=== PATIENT | male | born 1960 | race Caucasian/White ===

== ENCOUNTER → 2018-02-10 | Outpatient (CLI) | payer OTHER ==
--- NOTE | 2018-02-11 10:51 | ECHOF ---
Referral Reason:R01.1 Cardiac murmur MEASUREMENTS -------- HEIGHT: 175.3 cm WEIGHT: 164.7 kg BP: RVIDd: 3.9 cm (< 3.3) IVSd: 1.5 cm (0.6 - 1.1) LVIDd: 5.6 cm (3.9 - 5.3) LVPWd: 1.1 cm (0.6 - 1.1) IVSs: 1.6 cm LVIDs: 4.2 cm LVPWs: 1.0 cm LA Diam: 4.6 cm (2.7 - 3.8) LAESV Index (A-L): 36.10 ml/m EPSS: 0.4 cm Ao Diam: 3.4 cm (2.0 - 3.7) LA Diam: 2.2 cm (2.7 - 3.8) RVIDd: 3.8 cm (< 3.3) MV E Harshad: 0.73 m/s MV DecT: 331 ms MV A Harshad: 0.83 m/s MV E/A Ratio: 0.89 RAP: 5.00 mmHg RVSP: 19.64 mmHg MV EF SLOPE: 91.32 mm/s (70 - 150) MV EXCURSION: 1.94 cm (> 18.000) FINDINGS -------- Sinus rhythm. Morbid Obesity The left ventricular size is normal. There is mild concentric left ventricular hypertrophy. Overa ll left ventricular systolic function is low-normal with, an EF between 50 - 55 %. The right ventricle is moderate to severely enlarged. The left atrium is markedly dilated. LA is moderately dilated 34-39 ml/m2 The right atrial size is normal. The aortic valve is trileaflet, and appears structurally normal. No aortic stenosis or regurgitation. Mild mitral regurgitation is present. No regurgitation noted There is no evidence of pulmonary hypertension. There is no pulmonic regurgitation present. The aortic root size is normal. There is no pericardial effusion. CONCLUSIONS -------- 1. Morbid Obesity 2. The left ventricular size is normal. 3. There is mild concentric left ventricular hypertrophy. 4. Overall left ventricular systolic function is low-normal with, an EF between 50 - 55 %. 5. The right ventricle is moderate to severely enlarged. 6. The left atrium is markedly dilated. 7. LA is moderately dilated 34-39 ml/m2 8. The aortic valve is trileaflet, and appears structurally normal. No aortic stenosis or regurgitati on. 9. Mild mitral regurgitation is present. 10. No regurgitation noted 11. There is no evidence of pulmonary hypertension. 12. There is no pulmonic regurgitation present. 13. The aortic root size is normal. 14. There is no pericardial effusion. SYSTEM SOFTWARE DEVELOPER: JAZMIN English
== END | disposition home or self-care (01) ==
LOC: RADECHMAIN 14:43
PROVIDERS: ATTEND Nurse Practitioner Family
DX: I34.0 Nonrheumatic mitral (valve) insufficiency (principal); E66.01 Morbid (severe) obesity due to excess calories
CPT/HCPCS: 93306

== ENCOUNTER → 2022-12-08 | Outpatient (CLI) | payer OTHER ==
--- NOTE | 2022-12-08 16:39 | US ---
EXAMINATION TYPE: US renal artery duplex complet DATE OF EXAM: 12/08/2022 COMPARISON: NONE CLINICAL HISTORY: 62-year-old male I10 ESSENTIAL HYPERTENSION. Patient is morbidly obese, over 400lbs , new onset of HTN, patient was given order for renal artery doppler prior to starting BP meds FINDINGS: Computer Technician notes: Unable to do full study due to morbid obesity and overlying bowel gas The provided Doppler images are essentially nondiagnostic due to patient's size. Only small segments of either the mid or distal renal arteries could barely be visualized and measured velocities here ar e likely inaccurate. MEASUREMENTS: RENAL SIZE: Rt Kidney: 11.8 x 6.3 x 5.9 Lt Kidney: 11.2 x 5.9 x 8.3 There is no obvious hydronephrosis. Suspect a 3.1 cm upper to mid pole left renal cortical cyst. RESISTANCE INDEX Right: Unable to reliably assess Left: Unable to reliably assess RA/AO RATIO (< 3.5 ) Right: 1.6 *estimate based off of very limited imaging Left: 0.8 *estimate based off of very limited imaging RA VELOCITY ( < 180 cm/s) Right: 107 Left: 53.4 Note that these measurements may be inaccurate and are based on very limited sampling of portions of the mid or distal renal arteries. IMPRESSION: Very large patient size makes the exam essentially nondiagnostic. Unable to satisfactorily exclude th e possibility of underlying renal artery stenosis. If persistent concern, consider renal artery CTA ( but note that large patient size may limit CT as well).
== END | disposition home or self-care (01) ==
LOC: RADUSWWP 14:30
PROVIDERS: ATTEND Family Medicine
DX: I10 Essential (primary) hypertension (principal)
CPT/HCPCS: 93975

== ENCOUNTER → 2023-02-23 | Outpatient (CLI) | payer OTHER ==
--- NOTE | 2023-02-23 13:49 | XR ---
EXAMINATION TYPE: XR chest 2V DATE OF EXAM: 02/23/2023 1:42 PM COMPARISON: None TECHNIQUE: XR chest 2V Frontal and lateral views of the chest. CLINICAL INDICATION:Male, 62 years old with history of I10 HTN; FINDINGS: Lungs/Pleura: There is no evidence of pleural effusion, focal consolidation, or pneumothorax. Pulmonary vascularity: Unremarkable. Heart/mediastinum: Cardiomediastinal silhouette is unremarkable. Musculoskeletal: Multiple level degenerative disc disease changes seen throughout the spine. No acute osseous abnormality. IMPRESSION: No acute cardiopulmonary disease/process.
== END | disposition home or self-care (01) ==
LOC: RADXRMAIN 13:30
PROVIDERS: ATTEND Internal Medicine Hematology & Oncology
DX: J45.998 Other asthma (principal); E78.5 Hyperlipidemia, unspecified; I10 Essential (primary) hypertension
CPT/HCPCS: 71046

== ENCOUNTER → 2023-03-10 | Outpatient (CLI) | payer OTHER | END | disposition home or self-care (01) | LOC: RADUSWWP 12:28 | PROVIDERS: ATTEND Family Medicine | DX: Z53.9 Procedure and treatment not carried out, unspecified reason (principal) ==

== ENCOUNTER → 2023-03-17 | Outpatient (CLI) | payer OTHER ==
--- NOTE | 2023-03-17 13:48 | US ---
EXAMINATION TYPE: US venous doppler duplex LE DATE OF EXAM: 03/17/2023 12:53 PM COMPARISON: NONE CLINICAL INDICATION: Male, 62 years old with history of E78.2 HYPERLIPIDEMIA,M79.89 SOFT TISSUE DISOR DERS; left leg edema SIDE PERFORMED: bilateral TECHNIQUE: The lower extremity deep venous system is examined utilizing real time linear array sonog abbie with graded compression, doppler sonography and color-flow sonography. VESSELS IMAGED: Common Femoral Vein Deep Femoral Vein Greater Saphenous Vein * Femoral Vein Popliteal Vein Small Saphenous Vein * Proximal Calf Veins (* superficial vessels) *Limitations due to patient's body habitus, limited evaluation of groin vessels Right Leg: no evidence of DVT as visualized Left Leg: no evidence of DVT as visualized IMPRESSION: Grayscale, color doppler, spectral doppler imaging performed of the deep veins of the lo wer extremities. There is normal flow, compressibility, vascular waveforms.
== END | disposition home or self-care (01) ==
LOC: RADUSWWP 12:13
PROVIDERS: ATTEND Family Medicine
DX: E78.2 Mixed hyperlipidemia (principal); R25.2 Cramp and spasm; M79.89 Other specified soft tissue disorders
CPT/HCPCS: 93922; 93970

== ENCOUNTER 2025-01-21 12:48 | Inpatient (IN) | payer OTHER ==
--- NOTE | 2025-01-21 14:11 | ED ---
Abdominal Pain HPI - General Chief Complaint: Abdominal Pain Stated Complaint: abd pain Time Seen by Provider: 01/21/25 13:41 Source: patient, RN notes reviewed Mode of arrival: wheelchair Limitations: no limitations - History of Present Illness Initial Comments: This is a 64-year-old male who presents to the emergency department for abdominal pain and shortness of breath. States that he has been dealing with shortness of breath for the last 2 weeks. He has also started to notice swelling in his lower extremities and abdomen. Today he felt a pain in his left upper quadrant that occurred about 2 hours prior to arrival. This has since persisted, prompting him to come here for evaluation. Denies any nausea or vomiting. Denies any changes in bowel or bladder habits. Denies any history of respiratory or cardiac problems. MD Complaint: abdominal pain - Related Data Home Medications Medication Instructions Recorded Confirmed No Known Home Medications 01/21/25 01/21/25 Allergies Allergy/AdvReac Type Severity Reaction Status Date / Time tree nut Allergy Anaphylaxis Verified 01/21/25 16:21 Review of Systems ROS Statement: Those systems with pertinent positive or pertinent negative responses have been documented in the HPI. ROS Other: All systems not noted in ROS Statement are negative. Past Medical History Past Medical History: Hypertension History of Any Multi-Drug Resistant Organisms: None Reported Past Surgical History: No Surgical Hx Reported Past Psychological History: No Psychological Hx Reported Smoking Status: Former smoker Past Alcohol Use History: Rare Past Drug Use History: None Reported General Exam Limitations: no limitations General appearance: alert, in no apparent distress Head exam: Present: atraumatic, normocephalic, normal inspection Respiratory exam: Present: decreased breath sounds, prolonged expiratory Cardiovascular Exam: Present: normal rhythm, tachycardia GI/Abdominal exam: Present: soft, distended, tenderness (diffuse), normal bowel sounds Extremities exam: Present: other (Bilateral lower extremity swelling) Neurological exam: Present: alert, oriented X3, CN II-XII intact Psychiatric exam: Present: normal affect, normal mood Skin exam: Present: warm, dry, intact, normal color. Absent: rash Course Vital Signs 01/21/25 01/21/25 01/21/25 12:53 15:49 17:02 Temperature 98.3 F Pulse Rate 102 H 83 Respiratory 28 H 18 Rate Blood Pressure 194/114 212/122 169/93 O2 Sat by Pulse 87 L 98 Oximetry Medical Decision Making - Medical Decision Making This is a 64-year-old male who presents to the emergency department for abdominal pain and shortness of breath. Was pt. sent in by a medical professional or institution? @ -No Did you speak to anyone other than the patient for history? @ -No Did you review nursing and triage notes? @ -Yes, and I agree, it is accurate with regards to the patient's symptoms. Were old charts reviewed? @ -No Differential Diagnosis? @ -Differential Abdominal Pain Men: Appendicitis, cholecystitis, diverticulosis, ischemic bowel, pancreatitis, hepatitis, UTI, gastroenteritis, AAA, incarcerated hernia, bowel obstruction, constipation, inflammatory bowel, hepatitis, peptic ulcer disease, splenic infarction, perforated viscus, testicular torsion, this is not meant to be an all-inclusive list EKG interpreted by me (3pts min.)? @ -EKG interpreted by me demonstrating the following: Sinus tachycardia. Ventricular rate 100 bpm, MO interval 155 ms, QRS duration 116 ms, QTc 419 ms. X-rays interpreted by me (1pt min.)? @ -Chest x-ray obtained. My interpretation identifies pulmonary vascular congestion. CT interpreted by me (1pt min.)? @ -Ordered, not obtained at the point of admission. U/S interpreted by me (1pt. min.)? @ -Not obtained What testing was considered but not performed? (CT, X-rays, U/S, labs)? Why? @ -None What meds were considered but not given? Why? @ -None Did you discuss the management of the patient with other professionals? @ -Yes, Dr. Gregg, who accepts the patient for admission. Did you reconcile home meds? @ -Yes Was smoking cessation discussed for >3mins.? @ -No Was critical care preformed (if so, how long)? @ -No Were there social determinants of health that impacted care today? How? (Homelessness, low income, unemployed, alcoholism, drug addiction, transportation, low edu. Level, literacy, decrease access to med. care, fpc, rehab)? @ -No Was there de-escalation of care discussed even if they declined? (Discuss DNR or withdrawal of care, Hospice)? @ -No What co-morbidities impacted this encounter? (DM, HTN, Smoking, COPD, CAD, Cancer, CVA, Hep., AIDS, mental health diagnosis, sleep apnea, morbid obesity)? @ -Morbid obesity Was patient admitted / discharged? @ -Admitted. Patient hypoxic on arrival with an oxygen of 87%. This improved with 2 L via nasal cannula. Lab work demonstrates leukocytosis with a white blood cell count of 17.5. D-dimer negative. Lactic acid elevated at 2.3. BNP elevated at 2780 and troponin elevated at 0.057. Patient denies a history of C HF. Chest x-ray demonstrates cardiomegaly with pulmonary vascular congestion. On exam patient also appears to be retaining fluid in his lower extremities and abdomen. COVID, influenza, and RSV testing negative. Urinalysis negative for signs of infection. Given his abdominal pain we attempted to get a CT scan on the patient. However, he could not comfortably lay flat for the testing. He was not in any significant distress and will plan on obtaining the CT scan after admission when he is able to lay flat more comfortably. 40 mg of IV Lasix administered. Nitropaste applied as well to help with both his blood pressure and respirations. Vasotec also ordered due to his blood pressure being persistently elevated in the 200s systolically. Blood pressure did start to improve with both of these interventions. Patient admitted to medicine for new onset CHF with elevated troponin and hypoxia. Serial troponins ordered and consult was placed for cardiology. Echocardiogram ordered as well. Case discussed with ED attending Dr. Tamez. Undiagnosed new problem with uncertain prognosis? @ -None Drug Therapy requiring intensive monitoring for toxicity (Heparin, Nitro, Insulin, Cardizem)? @ -None Were any procedures done? @ -None Diagnosis/symptom? @ -New onset CHF, elevated troponin, hypoxia Acute, or Chronic, or Acute on Chronic? @ -Acute Uncomplicated (without systemic symptoms) or Complicated (systemic symptoms)? @ -Complicated Side effects of treatment? @ -None Exacerbation, Progression, or Severe Exacerbation] @ -Not applicable Poses a threat to life or bodily function? @ -Yes, can lead to further respiratory compromise and - Lab Data Result diagrams: 01/21/25 14:18 01/21/25 14:18 Lab Results 01/21/25 01/21/25 01/21/25 Range/Units 14:10 14:18 14:18 WBC 17.5 H (3.8-10.6) k/uL RBC 5.10 (4.30-5.90) m/uL Hgb 15.5 (13.0-17.5) gm/dL Hct 50.3 (39.0-53.0) % MCV 98.7 (80.0-100.0) fL MCH 30.3 (25.0-35.0) pg MCHC 30.7 L (31.0-37.0) g/dL RDW 16.2 H (11.5-15.5) % Plt Count 220 (150-450) k/uL MPV 8.0 Neutrophils % 85 % Lymphocytes % 9 % Monocytes % 4 % Eosinophils % 2 % Basophils % 0 % Neutrophils # 14.8 H (1.3-7.7) k/uL Lymphocytes # 1.5 (1.0-4.8) k/uL Monocytes # 0.7 (0-1.0) k/uL Eosinophils # 0.3 (0-0.7) k/uL Basophils # 0.1 (0-0.2) k/uL Hypochromasia Marked Anisocytosis Slight Macrocytosis Slight PT 13.6 H (10.0-12.5) sec INR 1.3 H (<1.2) APTT 28.7 (22.0-30.0) sec D-Dimer 0.59 (<0.60) mg/L FEU Sodium (137-145) mmol/L Potassium (3.5-5.1) mmol/L Chloride (98-107) mmol/L Carbon Dioxide (22-30) mmol/L Anion Gap mmol/L BUN (9-20) mg/dL Creatinine (0.66-1.25) mg/dL Est GFR (CKD-EPI)AfAm (>60 ml/min/1.73 sqM) Est GFR (CKD-EPI)NonAf (>60 ml/min/1.73 sqM) Glucose (74-99) mg/dL Lactic Ac Sepsis Rflx Plasma Lactic Acid Trevin (0.7-2.0) mmol/L Calcium (8.4-10.2) mg/dL Magnesium (1.6-2.3) mg/dL Total Bilirubin (0.2-1.3) mg/dL AST (17-59) U/L ALT (4-49) U/L Alkaline Phosphatase (38-126) U/L Troponin I (0.000-0.034) ng/mL NT-Pro-B Natriuret Pep pg/mL Total Protein (6.3-8.2) g/dL Albumin (3.5-5.0) g/dL Amylase (30-110) U/L Lipase (23-300) U/L Urine Color Urine Appearance (Clear) Urine pH (5.0-8.0) Ur Specific [place] (1.001-1.035) Urine Protein (Negative) Urine Glucose (UA) (Negative) Urine Ketones (Negative) Urine Blood (Negative) Urine Nitrite (Negative) Urine Bilirubin (Negative) Urine Urobilinogen (<2.0) mg/dL Ur Leukocyte Esterase (Negative) Urine RBC (0-5) /hpf Urine WBC (0-5) /hpf Ur Squamous Epith Cells (0-4) /hpf Hyaline Casts (0-2) /lpf Urine Mucus (None) /hpf Influenza Type A (PCR) Not Detected (Not Detectd) Influenza Type B (PCR) Not Detected (Not Detectd) RSV (PCR) Not Detected (Not Detectd) SARS-CoV-2 (PCR) Not Detected (Not Detectd) 01/21/25 01/21/25 01/21/25 Range/Units 14:18 14:18 14:18 WBC (3.8-10.6) k/uL RBC (4.30-5.90) m/uL Hgb (13.0-17.5) gm/dL Hct (39.0-53.0) % MCV (80.0-100.0) fL MCH (25.0-35.0) pg MCHC (31.0-37.0) g/dL RDW (11.5-15.5) % Plt Count (150-450) k/uL MPV Neutrophils % % Lymphocytes % % Monocytes % % Eosinophils % % Basophils % % Neutrophils # (1.3-7.7) k/uL Lymphocytes # (1.0-4.8) k/uL Monocytes # (0-1.0) k/uL Eosinophils # (0-0.7) k/uL Basophils # (0-0.2) k/uL Hypochromasia Anisocytosis Macrocytosis PT (10.0-12.5) sec INR (<1.2) APTT (22.0-30.0) sec D-Dimer (<0.60) mg/L FEU Sodium 140 (137-145) mmol/L Potassium 4.6 (3.5-5.1) mmol/L Chloride 95 L (98-107) mmol/L Carbon Dioxide 36 H (22-30) mmol/L Anion Gap 9 mmol/L BUN 14 (9-20) mg/dL Creatinine 0.85 (0.66-1.25) mg/dL Est GFR (CKD-EPI)AfAm >90 (>60 ml/min/1.73 sqM) Est GFR (CKD-EPI)NonAf >90 (>60 ml/min/1.73 sqM) Glucose 136 H (74-99) mg/dL Lactic Ac Sepsis Rflx Plasma Lactic Acid Trevin 2.3 H* (0.7-2.0) mmol/L Calcium 9.5 (8.4-10.2) mg/dL Magnesium 1.7 (1.6-2.3) mg/dL Total Bilirubin 1.3 (0.2-1.3) mg/dL AST 27 (17-59) U/L ALT 23 (4-49) U/L Alkaline Phosphatase 83 (38-126) U/L Troponin I (0.000-0.034) ng/mL NT-Pro-B Natriuret Pep 2780 pg/mL Total Protein 6.8 (6.3-8.2) g/dL Albumin 3.9 (3.5-5.0) g/dL Amylase 47 (30-110) U/L Lipase 116 (23-300) U/L Urine Color Yellow Urine Appearance Cloudy (Clear) Urine pH 6.0 (5.0-8.0) Ur Specific [place] 1.019 (1.001-1.035) Urine Protein 2+ H (Negative) Urine Glucose (UA) Negative (Negative) Urine Ketones Trace H (Negative) Urine Blood Negative (Negative) Urine Nitrite Negative (Negative) Urine Bilirubin Negative (Negative) Urine Urobilinogen 3.0 (<2.0) mg/dL Ur Leukocyte Esterase Small H (Negative) Urine RBC 3 (0-5) /hpf Urine WBC 11 H (0-5) /hpf Ur Squamous Epith Cells 1 (0-4) /hpf Hyaline Casts 1 (0-2) /lpf Urine Mucus Few H (None) /hpf Influenza Type A (PCR) (Not Detectd) Influenza Type B (PCR) (Not Detectd) RSV (PCR) (Not Detectd) SARS-CoV-2 (PCR) (Not Detectd) 01/21/25 01/21/25 Range/Units 14:18 15:04 WBC (3.8-10.6) k/uL RBC (4.30-5.90) m/uL Hgb (13.0-17.5) gm/dL Hct (39.0-53.0) % MCV (80.0-100.0) fL MCH (25.0-35.0) pg MCHC (31.0-37.0) g/dL RDW (11.5-15.5) % Plt Count (150-450) k/uL MPV Neutrophils % % Lymphocytes % % Monocytes % % Eosinophils % % Basophils % % Neutrophils # (1.3-7.7) k/uL Lymphocytes # (1.0-4.8) k/uL Monocytes # (0-1.0) k/uL Eosinophils # (0-0.7) k/uL Basophils # (0-0.2) k/uL Hypochromasia Anisocytosis Macrocytosis PT (10.0-12.5) sec INR (<1.2) APTT (22.0-30.0) sec D-Dimer (<0.60) mg/L FEU Sodium (137-145) mmol/L Potassium (3.5-5.1) mmol/L Chloride (98-107) mmol/L Carbon Dioxide (22-30) mmol/L Anion Gap mmol/L BUN (9-20) mg/dL Creatinine (0.66-1.25) mg/dL Est GFR (CKD-EPI)AfAm (>60 ml/min/1.73 sqM) Est GFR (CKD-EPI)NonAf (>60 ml/min/1.73 sqM) Glucose (74-99) mg/dL Lactic Ac Sepsis Rflx Y Plasma Lactic Acid Trevin (0.7-2.0) mmol/L Calcium (8.4-10.2) mg/dL Magnesium (1.6-2.3) mg/dL Total Bilirubin (0.2-1.3) mg/dL AST (17-59) U/L ALT (4-49) U/L Alkaline Phosphatase (38-126) U/L Troponin I 0.057 H* (0.000-0.034) ng/mL NT-Pro-B Natriuret Pep pg/mL Total Protein (6.3-8.2) g/dL Albumin (3.5-5.0) g/dL Amylase (30-110) U/L Lipase (23-300) U/L Urine Color Urine Appearance (Clear) Urine pH (5.0-8.0) Ur Specific [place] (1.001-1.035) Urine Protein (Negative) Urine Glucose (UA) (Negative) Urine Ketones (Negative) Urine Blood (Negative) Urine Nitrite (Negative) Urine Bilirubin (Negative) Urine Urobilinogen (<2.0) mg/dL Ur Leukocyte Esterase (Negative) Urine RBC (0-5) /hpf Urine WBC (0-5) /hpf Ur Squamous Epith Cells (0-4) /hpf Hyaline Casts (0-2) /lpf Urine Mucus (None) /hpf Influenza Type A (PCR) (Not Detectd) Influenza Type B (PCR) (Not Detectd) RSV (PCR) (Not Detectd) SARS-CoV-2 (PCR) (Not Detectd) - Radiology Data Radiology results: report reviewed, image reviewed Disposition Clinical Impression: New onset of congestive heart failure, Elevated troponin, Hypoxia Disposition: ADMITTED IP TO THIS HOSP
[2025-01-21 14:30] LABS: Anisocytosis Slight; Basophils # (A) 0.1 k/uL (0-0.2); Basophils % (A) 0 %; Eosinophils # (A) 0.3 k/uL (0-0.7); Eosinophils % (A) 2 %; HCT 50.3 % (39.0-53.0); HGB 15.5 gm/dL (13.0-17.5); Hypochromasia Marked; Lymphocytes # (A) 1.5 k/uL (1.0-4.8); Lymphocytes % (A) 9 %; MCH 30.3 pg (25.0-35.0); MCHC 30.7 g/dL (31.0-37.0); MCV 98.7 fL (80.0-100.0); Macrocytosis Slight; Monocytes # (A) 0.7 k/uL (0-1.0); Monocytes % (A) 4 %; Neutrophils # (A) 14.8 k/uL (1.3-7.7); Neutrophils % (A) 85 %; Platelet Count 220 k/uL (150-450); RDW 16.2 % (11.5-15.5); WBC 17.5 k/uL (3.8-10.6)
[2025-01-21 14:34] LABS: Appearance,Urine Cloudy (Clear); Bilirubin,Urine Negative (Negative); Blood,Urine Negative (Negative); Color,Urine Yellow; Glucose,Urine (UA) Negative (Negative); Hyaline Casts,Urine 1 /lpf (0-2); Ketones,Urine Trace (Negative); Leukocyte Esterase,Urine Small (Negative); Mucus,Urine Few /hpf; Nitrite,Urine Negative (Negative); Protein,Urine 2+ (Negative); RBC,Urine 3 /hpf (0-5); Specific Gravity,Urine 1.019 (1.001-1.035); Squamous Epithelial Cell,Urine 1 /hpf (0-4); WBC,Urine 11 /hpf (0-5)
[2025-01-21 14:39] LABS: ALT 23 U/L (4-49); AST 27 U/L (17-59); African American GFR (CKD) >90 (>60 ml/min/1.73 sqM); Albumin 3.9 g/dL (3.5-5.0); Alkaline Phosphatase 83 U/L (38-126); Amylase 47 U/L (30-110); Blood Urea Nitrogen 14 mg/dL (9-20); Calcium 9.5 mg/dL (8.4-10.2); Chloride 95 mmol/L (98-107); Glucose 136 mg/dL (74-99); Lipase 116 U/L (23-300); Magnesium 1.7 mg/dL (1.6-2.3); Non-African American GFR(CKD) >90 (>60 ml/min/1.73 sqM); Potassium 4.6 mmol/L (3.5-5.1); Sodium 140 mmol/L (137-145); Total Bilirubin 1.3 mg/dL (0.2-1.3); Total Protein 6.8 g/dL (6.3-8.2)
[2025-01-21 14:45] LABS: Anion Gap 9 mmol/L
[2025-01-21 14:47] LABS: INR 1.3 (<1.2); NT-Pro-B-Type Natriuretic Pept 2780 pg/mL; Partial Thromboplastin Time 28.7 sec (22.0-30.0); Prothrombin Time 13.6 sec (10.0-12.5)
[2025-01-21 15:05] LABS: Carbon Dioxide 36 mmol/L (22-30)
[2025-01-21 15:12] LABS: Influenza A Not Detected (Not Detectd); Influenza B Not Detected (Not Detectd); RSV Not Detected (Not Detectd)
--- NOTE | 2025-01-21 15:23 | XR ---
EXAMINATION TYPE: XR chest 2V DATE OF EXAM: 01/21/2025 3:13 PM COMPARISON: Previous chest radiograph 02/23/2023. CLINICAL INDICATION: Male, 64 years old with history of JONN; [facility] TECHNIQUE: XR chest 2V Frontal and lateral views of the chest. FINDINGS: Lungs/Pleura: No acute focal consolidation or evidence of pneumothorax. Mild pulmonary vascular conge stive changes and possible trace effusions. Pulmonary vascularity: Unremarkable. Heart/mediastinum: Cardiomegaly. Musculoskeletal: No acute osseous pathology. Other findings: None IMPRESSION: Cardiomegaly and mild pulmonary vascular congestive changes suggestive of CHF. [facility], , 01/21/2025 3:21 PM
[2025-01-21] MEDS ORDERED: ONDANSETRON 4 MG/2 ML VIAL IVP PRN (15:35)
[2025-01-21] MEDS ORDERED: ACETAMINOPHEN TAB 325 MG TAB PO PRN (15:35)
[2025-01-21] MEDS ORDERED: MORPHINE SULFATE 4 MG/ML SYRINGE IV PRN (15:35)
[2025-01-21] MEDS ORDERED: HYDROcodone/APAP 5-325MG 1 EACH TAB PO PRN (15:35)
[2025-01-21] MEDS ORDERED: NALOXONE 0.4 MG/ML 1 ML VIAL IV PRN (15:35)
[2025-01-21] MEDS: FUROSEMIDE 10 MG/ML 4 ML VIAL IV STA (15:42)
[2025-01-21] MEDS: ASPIRIN 81 MG PO STA (15:44)
[2025-01-21] MEDS: NITROGLYCERIN OINT 1 INCH/GM PACKET TOPICAL STA (15:45)
[2025-01-21] MEDS: ENALAPRILAT 1.25 MG/ML 1 ML VIAL IVP SCH (16:39)
[2025-01-21] MEDS: NITROGLYCERIN SL TABS 0.4 MG TAB SUBLINGUAL STA (17:01)
--- NOTE | 2025-01-21 19:04 | P.HPIM ---
History of Present Illness H&P Date: 01/21/25 Chief Complaint: Abnormal pain/shortness of breath 64-year-old male who presents to the emergency department for abdominal pain and shortness of breath. States that he has been dealing with shortness of breath for the last 2 weeks. He has also started to notice swelling in his lower extremities and abdomen. Today he felt a pain in his left upper quadrant that occurred about 2 hours prior to arrival. This has since persisted, prompting him to come here for evaluation. Denies any nausea or vomiting. Denies any changes in bowel or bladder habits. Denies any history of respiratory or cardiac problems. Patient hypoxic on arrival with an oxygen of 87%. This improved with 2 L via nasal cannula. Lab work demonstrates leukocytosis with a white blood cell count of 17.5. D- dimer negative. Lactic acid elevated at 2.3. BNP elevated at 2780 and troponin elevated at 0.057. Patient denies a history of CHF. Chest x-ray demonstrates cardiomegaly with pulmonary vascular congestion. COVID, influenza, and RSV testing negative. Urinalysis negative for signs of infection. Given his abdominal pain ER attempted to get a CT scan on the patient. However, he could not comfortably lay flat for the testing. Review of Systems REVIEW OF SYSTEMS: CONSTITUTIONAL: No fever, no malaise, no fatigue. HEENT: No recent visual problems or hearing problems. Denied any sore throat. CARDIOVASCULAR: No chest pain, orthopnea, PND, no palpitations, no syncope. PULMONARY: No shortness of breath, no cough, no hemoptysis. GASTROINTESTINAL: No diarrhea, no nausea, no vomiting, no abdominal pain. NEUROLOGICAL: No headaches, no weakness, no numbness. HEMATOLOGICAL: Denies any bleeding or petechiae. GENITOURINARY: Denies any burning micturition, frequency, or urgency. MUSCULOSKELETAL/RHEUMATOLOGICAL: Denies any joint pain, swelling, or any muscle pain. ENDOCRINE: Denies any polyuria or polydipsia. The rest of the 14-point review of systems is negative. Past Medical History Past Medical History: Hypertension History of Any Multi-Drug Resistant Organisms: None Reported Past Surgical History: No Surgical Hx Reported Past Psychological History: No Psychological Hx Reported Smoking Status: Former smoker Past Alcohol Use History: Rare Past Drug Use History: None Reported Medications and Allergies Home Medications Medication Instructions Recorded Confirmed Type No Known Home Medications 01/21/25 01/21/25 History Allergies Allergy/AdvReac Type Severity Reaction Status Date / Time tree nut Allergy Anaphylaxis Verified 01/21/25 16:21 Physical Exam Vitals: Vital Signs Temp Pulse Resp BP Pulse Ox 01/21/25 15:49 83 18 212/122 98 01/21/25 12:53 98.3 F 102 H 28 H 194/114 87 L Intake and Output 01/21/25 01/21/25 01/21/25 06:59 14:59 22:59 Other: Weight 158.757 kg General appearance: alert, in no apparent distress Head exam: Present: atraumatic, normocephalic, normal inspection Respiratory exam: Present: decreased breath sounds, prolonged expiratory Cardiovascular Exam: Present: normal rhythm, tachycardia GI/Abdominal exam: Present: soft, distended, tenderness (diffuse), normal bowel sounds Extremities exam: Present: other (Bilateral lower extremity swelling) Neurological exam: Present: alert, oriented X3, CN II-XII intact Psychiatric exam: Present: normal affect, normal mood Skin exam: Present: warm, dry, intact, normal color. Absent: rash Results CBC & Chem 7: 01/21/25 14:18 01/21/25 14:18 Labs: Abnormal Lab Results - Last 24 Hours (Table) 01/21/25 01/21/25 01/21/25 Range/Units 14:18 14:18 14:18 WBC 17.5 H (3.8-10.6) k/uL MCHC 30.7 L (31.0-37.0) g/dL RDW 16.2 H (11.5-15.5) % Neutrophils # 14.8 H (1.3-7.7) k/uL PT 13.6 H (10.0-12.5) sec INR 1.3 H (<1.2) Chloride (98-107) mmol/L Carbon Dioxide (22-30) mmol/L Glucose (74-99) mg/dL Plasma Lactic Acid Trevin (0.7-2.0) mmol/L Troponin I (0.000-0.034) ng/mL Urine Protein 2+ H (Negative) Urine Ketones Trace H (Negative) Ur Leukocyte Esterase Small H (Negative) Urine WBC 11 H (0-5) /hpf Urine Mucus Few H (None) /hpf 01/21/25 01/21/25 01/21/25 Range/Units 14:18 14:18 14:18 WBC (3.8-10.6) k/uL MCHC (31.0-37.0) g/dL RDW (11.5-15.5) % Neutrophils # (1.3-7.7) k/uL PT (10.0-12.5) sec INR (<1.2) Chloride 95 L (98-107) mmol/L Carbon Dioxide 36 H (22-30) mmol/L Glucose 136 H (74-99) mg/dL Plasma Lactic Acid Trevin 2.3 H* (0.7-2.0) mmol/L Troponin I 0.057 H* (0.000-0.034) ng/mL Urine Protein (Negative) Urine Ketones (Negative) Ur Leukocyte Esterase (Negative) Urine WBC (0-5) /hpf Urine Mucus (None) /hpf Assessment and Plan Assessment: 1. New onset CHF; acute exacerbation -Chest x-ray reveals cardiomegaly with pulmonary vascular congestion; BNP elevated at 2780 -Patient is clinically fluid overloaded -Will admit to telemetry; monitor EKG and trend troponin -Patient will be placed on IV Lasix; monitor strict CONNOR's, daily weights, renal function electrolytes -2D echo; consult cardiology 2. Leukocytosis/possible UTI; lactic acid is elevated at 2.3; no signs of infection; chest x-ray is negative for any acute process -UA reveals small amount of leukocyte esterase -Will start patient empirically on IV Rocephin and repeat CBC; procalcitonin and CRP 3. Elevated troponin; likely related to hypoxia - initial troponin is at 0.057; we will trend with plans to initiate IV heparin infusion if troponin continues to trend up 4. Hypertension; lisinopril 20 mg daily 5. Morbid obesity; counseling done on need for weight reduction DVT prophylaxis; SCDs/subcu heparin CODE STATUS; full code
[2025-01-21] MEDS: HEPARIN SODIUM,PORCINE 5,000 UNIT/ML 1 ML VIAL SQ SCH (21:02)
[2025-01-21] MEDS: FUROSEMIDE 10 MG/ML 2 ML VIAL IV SCH (23:11)
[2025-01-22 07:45] LABS: Anisocytosis Slight; Basophils # (A) 0.1 k/uL (0-0.2); Basophils % (A) 1 %; Eosinophils # (A) 0.1 k/uL (0-0.7); Eosinophils % (A) 1 %; HCT 46.9 % (39.0-53.0); Hypochromasia Marked; Lymphocytes # (A) 1.1 k/uL (1.0-4.8); Lymphocytes % (A) 7 %; MCHC 29.9 g/dL (31.0-37.0); MCV 100.1 fL (80.0-100.0); Macrocytosis Slight; Mean Platelet Volume 7.6; Monocytes # (A) 0.7 k/uL (0-1.0); Monocytes % (A) 5 %; Neutrophils # (A) 12.8 k/uL (1.3-7.7); Neutrophils % (A) 86 %; Platelet Count 212 k/uL (150-450); RBC 4.68 m/uL (4.30-5.90); WBC 14.9 k/uL (3.8-10.6)
[2025-01-22 08:02] LABS: African American GFR (CKD) >90 (>60 ml/min/1.73 sqM); Blood Urea Nitrogen 14 mg/dL (9-20); C Reactive Protein 2.9 mg/dL (<1.0); Calcium 8.9 mg/dL (8.4-10.2); Chloride 92 mmol/L (98-107); Glucose 117 mg/dL (74-99); Non-African American GFR(CKD) >90 (>60 ml/min/1.73 sqM); Potassium 4.4 mmol/L (3.5-5.1); Sodium 140 mmol/L (137-145)
[2025-01-22] MEDS: PANTOPRAZOLE 40 MG/10 ML VIAL IV SCH (08:03)
[2025-01-22 08:07] LABS: Anion Gap 7 mmol/L
[2025-01-22 08:13] LABS: Carbon Dioxide 41 mmol/L (22-30)
[2025-01-22 12:05] LABS: INR 1.2 (<1.2); Prothrombin Time 12.9 sec (10.0-12.5)
[2025-01-22 12:06] LABS: Partial Thromboplastin Time 28.2 sec (22.0-30.0)
[2025-01-22] MEDS: HEPARIN SOD,PORK IN 0.45% NACL 25,000 UNIT in 0.45% NACL 1 250ML.BAG IV SCH (12:31)
[2025-01-22] MEDS: HEPARIN SODIUM 1,000 UN/ML (10ML VL) IV ONE (12:32)
[2025-01-22] MEDS: acetaZOLAMIDE 250 MG TAB PO ONE (12:32)
--- NOTE | 2025-01-22 13:06 | P.CRDCN ---
History of Present Illness Consult date: 01/22/25 Reason for Consult (text): New Onset CHF Consult reason: congestive heart failure History of present illness: 64-year-old male with past medical history of hypertension presents with complaints of abdominal pain and shortness of breath. Cardiology consulted for new onset CHF. States that shortness of breath was getting worse over the last 2 weeks and during this time also noticed swelling in the bilateral lower e xtremities. Admits to orthopnea during this time, states he is only able to sleep in a recliner. Reports he previously was on lisinopril and hydrochlorothiazide up until August of last year when he had an insurance problem and was no longer able to receive the medication. Admits to being a smoker 1 pack a day 20 years ago. Most recent echo in 2018 showed EF 50 to 55% with left atrial dilation. Past surgical and family history unremarkable. No previous cardiac procedures. Vitals: Heart rate 94, respiratory rate 18, BP 183/83, O2 saturation 96% on 3 L Labs: Significant for WBC 14.9, hemoglobin 14, MCV 100, troponin peaked at 0.068, BNP 2780, cholesterol 180, LDL 117, and HDL 44 EKG: Sinus tachycardia CXR: Cardiomegaly plus pulmonary vascular congestion Past Medical History Past Medical History: Hypertension History of Any Multi-Drug Resistant Organisms: None Reported Past Surgical History: No Surgical Hx Reported Past Psychological History: No Psychological Hx Reported Smoking Status: Former smoker Past Alcohol Use History: Rare Past Drug Use History: None Reported Medications and Allergies Home Medications Medication Instructions Recorded Confirmed Type No Known Home Medications 01/21/25 01/21/25 History Allergies Allergy/AdvReac Type Severity Reaction Status Date / Time tree nut Allergy Anaphylaxis Verified 01/21/25 16:21 Physical Exam Vitals: Vital Signs Temp Pulse Pulse Resp BP BP Pulse Ox 01/22/25 08:00 99.3 F 98 18 169/70 98 01/22/25 06:30 139/91 01/22/25 04:45 94 18 183/83 96 01/21/25 23:10 93 18 172/91 92 L 01/21/25 19:55 98.6 F 80 18 153/92 98 01/21/25 17:02 169/93 01/21/25 15:49 83 18 212/122 98 01/21/25 12:53 98.3 F 102 H 28 H 194/114 87 L Intake and Output 01/21/25 01/22/25 01/22/25 22:59 06:59 14:59 Intake Total 960 128 Output Total 1000 400 Balance -40 -272 Intake: IV 10 Invasive Line 1 10 Oral 960 118 Output: Urine 1000 400 Other: Weight 158.757 kg 180.9 kg General: non toxic, no distress, morbidly obese Cardiovascular: S1S2 reg, no murmur, 1-2+ pitting edema bilaterally up to the knee Lungs: Decreased air entry bilaterally, no rhonchi, no rales, no accessory muscle use, mild wheezing auscultated bilaterally Abdominal: soft, nontender to palpation, no guarding Results 01/22/25 07:10 01/22/25 07:10 Cardiac Enzymes 01/21/25 01/21/25 01/21/25 Range/Units 14:18 14:18 17:37 AST 27 (17-59) U/L Troponin I 0.057 H* 0.068 H* (0.000-0.034) ng/mL 01/21/25 Range/Units 21:33 AST (17-59) U/L Troponin I 0.057 H* (0.000-0.034) ng/mL Coagulation 01/21/25 Range/Units 14:18 PT 13.6 H (10.0-12.5) sec APTT 28.7 (22.0-30.0) sec CBC 01/21/25 01/22/25 Range/Units 14:18 07:10 WBC 17.5 H 14.9 H (3.8-10.6) k/uL RBC 5.10 4.68 (4.30-5.90) m/uL Hgb 15.5 14.0 (13.0-17.5) gm/dL Hct 50.3 46.9 (39.0-53.0) % Plt Count 220 212 (150-450) k/uL Comprehensive Metabolic Panel 01/21/25 01/22/25 Range/Units 14:18 07:10 Sodium 140 140 (137-145) mmol/L Potassium 4.6 4.4 (3.5-5.1) mmol/L Chloride 95 L 92 L (98-107) mmol/L Carbon Dioxide 36 H 41 H* (22-30) mmol/L BUN 14 14 (9-20) mg/dL Creatinine 0.85 0.79 (0.66-1.25) mg/dL Glucose 136 H 117 H (74-99) mg/dL Calcium 9.5 8.9 (8.4-10.2) mg/dL AST 27 (17-59) U/L ALT 23 (4-49) U/L Alkaline Phosphatase 83 (38-126) U/L Total Protein 6.8 (6.3-8.2) g/dL Albumin 3.9 (3.5-5.0) g/dL Current Medications Generic Name Dose Route Start Last Admin Trade Name Freq PRN Reason Stop Dose Admin Acetaminophen 650 mg 01/21/25 15:35 Acetaminophen Tab 325 Mg Tab PO Q6HR PRN Mild Pain or Fever > 100.5 Hydrocodone Bitart/Acetaminophen 1 each 01/21/25 15:35 Hydrocodone/Apap 5-325mg 1 Each Tab PO Q4HR PRN Moderate Pain (Scale 4 to 6) Acetazolamide 250 mg 01/22/25 13:00 Acetazolamide 250 Mg Tab PO 01/22/25 13:01 ONCE ONE Aspirin 81 mg 01/23/25 09:00 Aspirin 81 Mg PO DAILY [facility] Atorvastatin Calcium 40 mg 01/22/25 21:00 Atorvastatin 40 Mg Tab PO HS [facility] Carvedilol 6.25 mg 01/22/25 17:30 Carvedilol 6.25 Mg Tab PO BID-W/MEALS [facility] Furosemide 40 mg 01/22/25 21:00 Furosemide 10 Mg/Ml 4 Ml Vial IV Q12HR [facility] Heparin Sodium (Porcine) 4,000 unit 01/22/25 11:13 Heparin Sodium 1,000 Un/Ml (10ml Vl) IV 01/22/25 11:14 ONCE ONE Heparin Sodium (Porcine) 0 unit 01/22/25 11:13 Heparin Sodium 1,000 Un/Ml (10ml Vl) IV PER PROTOCOL PRN Low PTT Protocol Ceftriaxone Sodium 2 gm/ 50 mls @ 100 mls/hr 01/21/25 19:15 01/22/25 08:03 Sodium Chloride IVPB 100 mls/hr Q24HR [facility]ARIN Administration Protocol Heparin Sodium/Sodium Chloride 250 mls @ 21.708 mls/hr 01/22/25 11:15 25,000 unit/ Sodium Chloride IV .[id number] KARIN Protocol 12 UNITS/KG/HR Losartan Potassium 25 mg 01/23/25 09:00 Losartan 25 Mg Tab PO DAILY [facility] Morphine Sulfate 4 mg 01/21/25 15:35 Morphine Sulfate 4 Mg/Ml Syringe IV Q4HR PRN Severe Pain (Scale 7 to 10) Naloxone HCl 0.2 mg 01/21/25 15:35 Naloxone 0.4 Mg/Ml 1 Ml Vial IV Q2M PRN Opioid Reversal Ondansetron HCl 4 mg 01/21/25 15:35 Ondansetron 4 Mg/2 Ml Vial IVP Q8HR PRN Nausea And Vomiting Pantoprazole Sodium 40 mg 01/22/25 09:00 01/22/25 08:03 Pantoprazole 40 Mg/10 Ml Vial IV 40 mg DAILY [facility]ARIN Administration Spironolactone 12.5 mg 01/23/25 09:00 Spironolactone 25 Mg Tab PO DAILY [facility] Intake and Output 01/21/25 01/22/25 01/22/25 22:59 06:59 14:59 Intake Total 960 128 Output Total 1000 400 Balance -40 -272 Intake: IV 10 Invasive Line 1 10 Oral 960 118 Output: Urine 1000 400 Other: Weight 158.757 kg 180.9 kg 01/22/25 07:10 01/22/25 07:10 Assessment and Plan Assessment: -Acute CHF exacerbation -NSTEMI -Hypercapnia -Undiagnosed NAHEED -Morbid obesity -Hypertension -Hyperglycemia -Elevated troponin Plan: -Started Lipitor 40 daily and aspirin 81 mg daily -Started Coreg 6.25 mg twice daily, losartan 25 mg daily, Aldactone 12.5 mg daily, and IV heparin with bolus -Change Lasix to 40 mg IV twice daily -One-time dose of Diamox 250 mg -CBC and BMP already ordered, ordered magnesium, TSH, and A1c -Echo scheduled for today -Continue telemetry -Strict I's and O's, daily weights, fluid restrict to 2 L
[2025-01-22 14:54] LABS: Anisocytosis Slight; Basophils # (A) 0.1 k/uL (0-0.2); Basophils % (A) 0 %; Eosinophils # (A) 0.1 k/uL (0-0.7); Eosinophils % (A) 1 %; HCT 45.3 % (39.0-53.0); HGB 13.7 gm/dL (13.0-17.5); Hypochromasia Marked; Lymphocytes # (A) 1.5 k/uL (1.0-4.8); Lymphocytes % (A) 9 %; MCH 30.1 pg (25.0-35.0); MCHC 30.2 g/dL (31.0-37.0); MCV 99.4 fL (80.0-100.0); Macrocytosis Slight; Mean Platelet Volume 7.9; Monocytes # (A) 0.7 k/uL (0-1.0); Monocytes % (A) 4 %; Neutrophils # (A) 13.2 k/uL (1.3-7.7); Neutrophils % (A) 85 %; Platelet Count 201 k/uL (150-450); RBC 4.55 m/uL (4.30-5.90); RDW 16.2 % (11.5-15.5); WBC 15.6 k/uL (3.8-10.6)
[2025-01-22] MEDS: carvediloL 6.25 MG TAB PO SCH (16:27)
[2025-01-22 16:46] LABS: Chol/HDL Ratio 3.53 Ratio; LDL Cholesterol,Calculated 92.6 mg/dL (0.0-131.0); VLDL Calculation 16.98 mg/dL (5.00-40.00)
[2025-01-22 17:34] VITALS: BMI 55.6
[2025-01-22] MEDS: HEPARIN SODIUM 1,000 UN/ML (10ML VL) IV PRN (18:00)
--- NOTE | 2025-01-22 18:02 | CA ---
Transthoracic Echo Report Name: Shivam Hernandez Age: 64 Gender: M : 1960 Exam Date: 01/22/2025 16:33 Exam Location: [place] Echo Ht (in): 71 Wt (lb): 350 Ordering Physician: Caitlin Silva Attending/Referring Phys: [employer] Dean Isela Frank RDCS Procedure CPT: Indications: chf Cardiac Hx: Technical Quality: Technically difficult study Contrast 1: Definity Total Dose (mL): 2 Contrast 2: Total Dose (mL): MEASUREMENTS (Male / Female) Normal Values 2D ECHO LV Diastolic Diameter PLAX 5.2 cm 4.2 - 5.9 / 3.9 - 5.3 cm LV Systolic Diameter PLAX 4.4 cm IVS Diastolic Thickness 2.0 cm 0.6 - 1.0 / 0.6 - 0.9 cm LVPW Diastolic Thickness 1.9 cm 0.6 - 1.0 / 0.6 - 0.9 cm LV Relative Wall Thickness 0.7 RV Internal Dim ED PLAX 4.3 cm LA Systolic Diameter LX 4.3 cm 3.0 - 4.0 / 2.7 - 3.8 cm LV Diastolic Volume MOD BP 116.8 cm??? 67 - 155 / 56 - 104 cm??? LV Systolic Volume MOD BP 54.3 cm??? 22 - 58 / 19 - 49 cm??? LV Ejection Fraction MOD BP 53.5 % >= 55 % LV Cardiac Index MOD BP 1850.2 cm???/min???m??? LV Diastolic Volume MOD 4C 119.0 cm??? LV Systolic Volume MOD 4C 57.8 cm??? LV Ejection Fraction MOD 4C 51.5 % LV Cardiac Index MOD 4C 1814.3 cm???/min???m??? LV Diastolic Length 4C 8.7 cm LV Systolic Length 4C 7.3 cm LV Diastolic Volume MOD 2C 99.1 cm??? LV Systolic Volume MOD 2C 44.7 cm??? LV Ejection Fraction MOD 2C 54.9 % LV Cardiac Index MOD 2C 1610.8 cm???/min???m??? LV Diastolic Length 2C 7.2 cm LV Systolic Length 2C 6.1 cm DOPPLER AV Peak Velocity 209.4 cm/s AV Peak Gradient 17.5 mmHg AV Mean Velocity 144.4 cm/s AV Mean Gradient 9.3 mmHg AV Velocity Time Integral 38.6 cm LVOT Peak Velocity 100.7 cm/s LVOT Peak Gradient 4.1 mmHg LVOT Velocity Time Integral 21.6 cm MV Area PHT 3.5 cm??? Mitral E Point Velocity 112.2 cm/s Mitral A Point Velocity 70.7 cm/s Mitral E to A Ratio 1.6 MV Deceleration Time 219.5 ms TR Peak Velocity 280.2 cm/s TR Peak Gradient 31.4 mmHg Right Ventricular Systolic Press 46.4 mmHg FINDINGS Left Ventricle Left ventricular ejection fraction is estimated at 55-60 %. Normal left ventricular systolic function with no obvious regional wall motion abnormalities. Left ventricular cavity size normal. Severely increased left ventricular wall thickness. Right Ventricle Severe right ventricular dilatation. Moderate pulmonary hypertension. Right Atrium Right atrium not well visualized. Left Atrium Mildly increased left atrial diameter. Mildly increased left atrial area. No left atrial thrombus or mass present. Mitral Valve Mitral valve thickened. Mild mitral annular calcification. Mild mitral regurgitation. Aortic Valve Trileaflet aortic valve. No aortic valve stenosis or regurgitation. Tricuspid Valve Structurally normal tricuspid valve. Mild tricuspid regurgitation. Pulmonic Valve Pulmonic valve not well visualized. Pericardium No pericardial effusion. Aorta Normal size aortic root and proximal ascending aorta. CONCLUSIONS Technically difficult study. Definity ECHO contrast used for improved visualization of the endocardial borders (inadequate visualization of two or more contiguous segments). Normal left ventricular size and systolic function with severe hypertrophy Very limited Doppler study with mild mitral and tricuspid regurgitation and mild pulmonary hypertension Previewed by: Dr. Carey Santoro MD (Electronically Signed) Final Date: 22 January 2025 18:01
[2025-01-22] MEDS: ATORVASTATIN 40 MG TAB PO SCH (20:29)
[2025-01-22] MEDS: FUROSEMIDE 10 MG/ML 4 ML VIAL IV SCH (20:29)
--- NOTE | 2025-01-23 02:00 | P.PN ---
Subjective Progress Note Date: 01/22/25 64-year-old male who presents to the emergency department for abdominal pain and shortness of breath. States that he has been dealing with shortness of breath for the last 2 weeks. He has also started to notice swelling in his lower extremities and abdomen. Today he felt a pain in his left upper quadrant that occurred about 2 hours prior to arrival. This has since persisted, prompting him to come here for evaluation. Denies any nausea or vomiting. Denies any changes in bowel or bladder habits. Denies any history of respiratory or cardiac problems. Patient hypoxic on arrival with an oxygen of 87%. This improved with 2 L via nasal cannula. Lab work demonstrates leukocytosis with a white blood cell count of 17.5. D- dimer negative. Lactic acid elevated at 2.3. BNP elevated at 2780 and troponin elevated at 0.057. Patient denies a history of CHF. Chest x-ray demonstrates cardiomegaly with pulmonary vascular congestion. COVID, influenza, and RSV testing negative. Urinalysis negative for signs of infection. Given his abdominal pain ER attempted to get a CT scan on the patient. However, he could not comfortably lay flat for the testing. 01/22/2025 Patient is seen in follow-up today with cardiology following. Patient is being started on IV Lasix and was given a dose of Diamox. 2D echo ordered and pending and patient denies any previous history of heart failure. Patient reports significant swelling although is also morbidly obese with significantly large body habitus. Patient currently living in a retirement house and is noncompliant with any medication and outpatient follow-up. Patient is short of breath and continues to be short of breath with conversation and minimal exertion. Patient will need outpatient evaluation by pulmonary for sleep apnea Review of systems: Constitutional: No reports of fatigue, fever, or chills Cardiovascular: No reports of chest pain or palpitations Respiratory: No reports of shortness of breath or cough GI: No reports of nausea, vomiting, or diarrhea : No reports of dysuria or retention Neurovascular: No reports of weakness or numbness All medications have been reviewed Physical exam: General appearance: alert, in no apparent distress, well-developed, morbidly obese, unkempt, ill-appearing, appears older than stated age Head exam: Present: atraumatic, normocephalic, normal inspection Respiratory exam: Present: decreased breath sounds, prolonged expiratory, some faint crackles noted at the bases Cardiovascular Exam: Present: normal rhythm, tachycardia GI/Abdominal exam: Present: soft, morbidly obese distended, tenderness (diffuse), normal bowel sounds Extremities exam: Present: other (Bilateral lower extremity swelling nonpitting Neurological exam: Present: alert, oriented X3, CN II-XII intact Psychiatric exam: Present: normal affect, normal mood Skin exam: Present: warm, dry, intact, normal color. Absent: rash Assessment: 1. New onset CHF; acute exacerbation -Chest x-ray reveals cardiomegaly with pulmonary vascular congestion; BNP elevated at 2780 -Patient is not significantly clinically fluid overloaded, appears extremely large body habitus as well -Continue current medical chronic telemetry; monitor EKG and trend troponin -Patient is continued on IV Lasix twice daily; monitor strict CONNOR's, daily weights, renal function electrolytes -2D echo ordered and pending; cardiology following 2. Leukocytosis/possible UTI; lactic acid is elevated at 2.3; no signs of infection; chest x-ray is negative for any acute process -UA reveals small amount of leukocyte esterase -Will start patient empirically on IV Rocephin and repeat CBC; procalcitonin pending although suspicion for UTI is low 3. Elevated troponin; likely related to hypoxia - initial troponin is at 0.057; we will trend with plans to initiate IV heparin infusion if troponin continues to trend up 4. Hypertension; lisinopril 20 mg daily 5. Morbid obesity with a BMI of 55.6; possible obesity hypoventilation syndrome, will need outpatient testing GI prophylaxis DVT prophylaxis; SCDs/subcu heparin CODE STATUS; full code The impression and plan of care has been dictated by Nkechi Velásquez, Nurse Practitioner as directed. Dr. Janeth MD I have performed a history and examination and MDM of this patient, discussed the same with the dictator, and agree with the dictator's assessment and plan as written ,documented as a scribe. Based on total visit time, I have performed more than 50% of the visit. Objective - Vital Signs Vital signs: Vital Signs Temp 99.3 F 01/22/25 08:00 Pulse 98 01/22/25 08:00 Resp 18 01/22/25 08:00 BP 169/70 01/22/25 08:00 Pulse Ox 98 01/22/25 08:00 FiO2 Intake & Output 01/21/25 01/22/25 01/22/25 18:59 06:59 18:59 Intake Total 960 128 Output Total 1000 400 Balance -40 -272 Weight 158.757 kg 180.9 kg Intake: IV 10 Invasive Line 1 10 Oral 960 118 Output: Urine 1000 400 - Labs CBC & Chem 7: 01/22/25 14:18 01/22/25 07:10 Labs: Abnormal Lab Results - Last 24 Hours (Table) 01/21/25 01/21/25 01/21/25 Range/Units 14:18 14:18 14:18 WBC 17.5 H (3.8-10.6) k/uL MCV (80.0-100.0) fL MCHC 30.7 L (31.0-37.0) g/dL RDW 16.2 H (11.5-15.5) % Neutrophils # 14.8 H (1.3-7.7) k/uL PT 13.6 H (10.0-12.5) sec INR 1.3 H (<1.2) Chloride (98-107) mmol/L Carbon Dioxide (22-30) mmol/L Glucose (74-99) mg/dL Plasma Lactic Acid Trevin (0.7-2.0) mmol/L Troponin I (0.000-0.034) ng/mL C-Reactive Protein (<1.0) mg/dL Urine Protein 2+ H (Negative) Urine Ketones Trace H (Negative) Ur Leukocyte Esterase Small H (Negative) Urine WBC 11 H (0-5) /hpf Urine Mucus Few H (None) /hpf 01/21/25 01/21/25 01/21/25 Range/Units 14:18 14:18 14:18 WBC (3.8-10.6) k/uL MCV (80.0-100.0) fL MCHC (31.0-37.0) g/dL RDW (11.5-15.5) % Neutrophils # (1.3-7.7) k/uL PT (10.0-12.5) sec INR (<1.2) Chloride 95 L (98-107) mmol/L Carbon Dioxide 36 H (22-30) mmol/L Glucose 136 H (74-99) mg/dL Plasma Lactic Acid Trevin 2.3 H* (0.7-2.0) mmol/L Troponin I 0.057 H* (0.000-0.034) ng/mL C-Reactive Protein (<1.0) mg/dL Urine Protein (Negative) Urine Ketones (Negative) Ur Leukocyte Esterase (Negative) Urine WBC (0-5) /hpf Urine Mucus (None) /hpf 01/21/25 01/21/25 01/22/25 Range/Units 17:37 21:33 07:10 WBC 14.9 H (3.8-10.6) k/uL MCV 100.1 H (80.0-100.0) fL MCHC 29.9 L (31.0-37.0) g/dL RDW 16.0 H (11.5-15.5) % Neutrophils # 12.8 H (1.3-7.7) k/uL PT (10.0-12.5) sec INR (<1.2) Chloride (98-107) mmol/L Carbon Dioxide (22-30) mmol/L Glucose (74-99) mg/dL Plasma Lactic Acid Trevin (0.7-2.0) mmol/L Troponin I 0.068 H* 0.057 H* (0.000-0.034) ng/mL C-Reactive Protein (<1.0) mg/dL Urine Protein (Negative) Urine Ketones (Negative) Ur Leukocyte Esterase (Negative) Urine WBC (0-5) /hpf Urine Mucus (None) /hpf 01/22/25 Range/Units 07:10 WBC (3.8-10.6) k/uL MCV (80.0-100.0) fL MCHC (31.0-37.0) g/dL RDW (11.5-15.5) % Neutrophils # (1.3-7.7) k/uL PT (10.0-12.5) sec INR (<1.2) Chloride 92 L (98-107) mmol/L Carbon Dioxide 41 H* (22-30) mmol/L Glucose 117 H (74-99) mg/dL Plasma Lactic Acid Trevin (0.7-2.0) mmol/L Troponin I (0.000-0.034) ng/mL C-Reactive Protein 2.9 H (<1.0) mg/dL Urine Protein (Negative) Urine Ketones (Negative) Ur Leukocyte Esterase (Negative) Urine WBC (0-5) /hpf Urine Mucus (None) /hpf
[2025-01-23 06:50] LABS: Anisocytosis Slight; Basophils # (A) 0.1 k/uL (0-0.2); Basophils % (A) 0 %; Eosinophils # (A) 0.2 k/uL (0-0.7); Eosinophils % (A) 2 %; HCT 45.2 % (39.0-53.0); HGB 13.4 gm/dL (13.0-17.5); Hypochromasia Marked; Lymphocytes # (A) 1.2 k/uL (1.0-4.8); Lymphocytes % (A) 9 %; MCH 29.5 pg (25.0-35.0); MCHC 29.6 g/dL (31.0-37.0); MCV 99.5 fL (80.0-100.0); Macrocytosis Slight; Mean Platelet Volume 7.6; Monocytes # (A) 0.7 k/uL (0-1.0); Monocytes % (A) 5 %; Neutrophils # (A) 11.6 k/uL (1.3-7.7); Neutrophils % (A) 84 %; Platelet Count 181 k/uL (150-450); RBC 4.54 m/uL (4.30-5.90); WBC 13.9 k/uL (3.8-10.6)
[2025-01-23 07:05] LABS: INR 1.2 (<1.2); Partial Thromboplastin Time 69.8 sec (22.0-30.0)
[2025-01-23 07:36] LABS: African American GFR (CKD) >90 (>60 ml/min/1.73 sqM); Blood Urea Nitrogen 13 mg/dL (9-20); Calcium 8.7 mg/dL (8.4-10.2); Chloride 93 mmol/L (98-107); Glucose 137 mg/dL (74-99); Magnesium 1.9 mg/dL (1.6-2.3); Non-African American GFR(CKD) >90 (>60 ml/min/1.73 sqM); Potassium 4.1 mmol/L (3.5-5.1); Sodium 139 mmol/L (137-145)
[2025-01-23 07:42] LABS: Anion Gap 7 mmol/L
[2025-01-23 07:58] LABS: Carbon Dioxide 39 mmol/L (22-30)
[2025-01-23] MEDS: SPIRONOLACTONE 25 MG TAB PO SCH (07:58)
[2025-01-23] MEDS: ASPIRIN 81 MG PO SCH (07:58)
[2025-01-23] MEDS: LOSARTAN 25 MG TAB PO SCH (07:58)
--- NOTE | 2025-01-23 13:53 | P.PN ---
Subjective 64-year-old male with past medical history of hypertension presents with complaints of abdominal pain and shortness of breath. Cardiology consulted for new onset CHF. States that shortness of breath was getting worse over the last 2 weeks and during this time also noticed swelling in the bilateral lower extremities. Admits to orthopnea during this time, states he is only able to sleep in a recliner. Reports he previously was on lisinopril and hydrochlorothiazide up until August of last year when he had an insurance problem and was no longer able to receive the medication. Admits to being a smoker 1 pack a day 20 years ago. Most recent echo in 2018 showed EF 50 to 55% with left atrial dilation. Past surgical and family history unremarkable. No previous cardiac procedures. Vitals: Heart rate 94, respiratory rate 18, BP 183/83, O2 saturation 96% on 3 L Labs: Significant for WBC 14.9, hemoglobin 14, MCV 100, troponin peaked at 0. 068, BNP 2780, cholesterol 180, LDL 117, and HDL 44 EKG: Sinus tachycardia CXR: Cardiomegaly plus pulmonary vascular congestion 3/4 Patient seen and examined in the cardiac stepdown unit. No significant events. Yesterday, patient underwent echo which showed EF 55 to 60% with no obvious wall motion abnormalities. Overnight patient had bursts of PVT's lasting less than 30 seconds. TSH and magnesium ordered yesterday were within normal limits, A1c was 7.9. Blood pressures 122/49, heart rate 75, pulse ox 91% on 3 L. Repeat blood work reveals WBC 13.9, hemoglobin 13.4, sodium 139, potassium 4.1, chloride 93, bicarb 39, glucose 137, and TSH 1.19. Patient continues to have good urine output, documented that he is put out at least 1 L but after speaking with nursing staff they report the patient "does not aim well "and they believe his urine output is greater than what is actually recorded. REVIEW OF SYSTEMS At the time of my exam: CONSTITUTIONAL: Denies fever or chills. CARDIOVASCULAR: no chest pain, + shortness of breath, no orthopnea, PND or palpitations. RESPIRATORY: Denies cough. GASTROINTESTINAL: Denies abdominal pain, diarrhea, constipation, nausea or vomiting. MUSCULOSKELETAL: Denies myalgias. NEUROLOGIC: Denies numbness, tingling or weakness. ENDOCRINE: Denies fatigue, weight change, polydipsia or polyurina. GENITOURINARY: Denies burning, hematuria or urgency with micturation. HEMATOLOGIC: Denies history of anemia or bleeding. PHYSICAL EXAM Vital signs reviewed. General: non toxic, no distress, morbidly obese HEENT: Head is normocephalic. Pupils are equal, round. Sclerae anicteric. Mucous membranes of the mouth are moist. No JVD. No carotid bruit. Cardiovascular: S1S2 reg, no murmur, 1+ pitting edema bilaterally up to the knee, worse in left leg Lungs: Decreased air entry bilaterally, no rhonchi, no rales, no accessory muscle use, mild wheezing auscultated bilaterally Abdominal: soft, nontender to palpation, no guarding NEUROLOGIC EXAMINATION: Patient is awake, alert and oriented x3. ASSESSMENT -Acute CHF exacerbation -NSTEMI -Hypercapnia -Undiagnosed NAHEED -Morbid obesity -Hypertension -Hyperglycemia -Elevated troponin PLAN -Continue Lipitor 40 daily and aspirin 81 mg daily -Continue Coreg 6.25 mg twice daily, losartan 25 mg daily, Aldactone 12.5 mg daily, and IV heparin with bolus -Change Lasix to 40 mg IV 3 times daily -CBC and BMP -Continue telemetry -Strict I's and O's, daily weights, fluid restrict to 2 L -Ordered Farxiga 10 mg Objective - Vital Signs Vital signs: Vital Signs Temp 98.4 F 01/23/25 12:00 Pulse 84 01/23/25 12:00 Resp 18 01/23/25 12:00 BP 156/75 01/23/25 12:00 Pulse Ox 95 01/23/25 12:00 FiO2 Intake & Output 01/22/25 01/23/25 01/23/25 18:59 06:59 18:59 Intake Total 027.544 4132 374.31 Output Total 1500 604 Balance -967.833 488 374.31 Weight 180.9 kg 178.4 kg Intake: IV 20 10 Invasive Line 1 20 10 Intake, IV Titration 54.167 194.31 Amount Heparin Sod,Pork in 0.45% 54.167 194.31 NaCl 25,000 unit In 0.45 % NaCl 1 250ml.bag @ 5. 5279 UNITS/KG/HR 10 mls/ hr IV .Q24H [facility] Rx#: [id number] Oral 458 1082 180 Output: Urine 1500 604 Other: Voiding Method Toilet Toilet - Labs CBC & Chem 7: 01/23/25 06:32 01/23/25 06:32 Labs: Abnormal Lab Results - Last 24 Hours (Table) 01/22/25 01/22/25 01/22/25 Range/Units 07:10 14:18 17:22 WBC 15.6 H (3.8-10.6) k/uL MCHC 30.2 L (31.0-37.0) g/dL RDW 16.2 H (11.5-15.5) % Neutrophils # 13.2 H (1.3-7.7) k/uL PT (10.0-12.5) sec INR (<1.2) APTT 38.3 H (22.0-30.0) sec Chloride (98-107) mmol/L Carbon Dioxide (22-30) mmol/L Glucose (74-99) mg/dL Hemoglobin A1c 7.9 H (<=6.0) % 01/22/25 01/23/25 01/23/25 Range/Units 23:56 06:32 06:32 WBC (3.8-10.6) k/uL MCHC (31.0-37.0) g/dL RDW (11.5-15.5) % Neutrophils # (1.3-7.7) k/uL PT 13.0 H (10.0-12.5) sec INR 1.2 H (<1.2) APTT 57.7 H 69.8 H (22.0-30.0) sec Chloride 93 L (98-107) mmol/L Carbon Dioxide 39 H (22-30) mmol/L Glucose 137 H (74-99) mg/dL Hemoglobin A1c (<=6.0) % 01/23/25 01/23/25 Range/Units 06:32 12:20 WBC 13.9 H (3.8-10.6) k/uL MCHC 29.6 L (31.0-37.0) g/dL RDW 16.0 H (11.5-15.5) % Neutrophils # 11.6 H (1.3-7.7) k/uL PT (10.0-12.5) sec INR (<1.2) APTT 52.2 H (22.0-30.0) sec Chloride (98-107) mmol/L Carbon Dioxide (22-30) mmol/L Glucose (74-99) mg/dL Hemoglobin A1c (<=6.0) %
[2025-01-23] MEDS: FUROSEMIDE 10 MG/ML 4 ML VIAL IV SCH (16:30)
--- NOTE | 2025-01-24 05:50 | P.PN ---
Subjective Progress Note Date: 01/23/25 64-year-old male who presents to the emergency department for abdominal pain and shortness of breath. States that he has been dealing with shortness of breath for the last 2 weeks. He has also started to notice swelling in his lower extremities and abdomen. Today he felt a pain in his left upper quadrant that occurred about 2 hours prior to arrival. This has since persisted, prompting him to come here for evaluation. Denies any nausea or vomiting. Denies any changes in bowel or bladder habits. Denies any history of respiratory or cardiac problems. Patient hypoxic on arrival with an oxygen of 87%. This improved with 2 L via nasal cannula. Lab work demonstrates leukocytosis with a white blood cell count of 17.5. D- dimer negative. Lactic acid elevated at 2.3. BNP elevated at 2780 and troponin elevated at 0.057. Patient denies a history of CHF. Chest x-ray demonstrates cardiomegaly with pulmonary vascular congestion. COVID, influenza, and RSV testing negative. Urinalysis negative for signs of infection. Given his abdominal pain ER attempted to get a CT scan on the patient. However, he could not comfortably lay flat for the testing. 01/22/2025 Patient is seen in follow-up today with cardiology following. Patient is being started on IV Lasix and was given a dose of Diamox. 2D echo ordered and pending and patient denies any previous history of heart failure. Patient reports significant swelling although is also morbidly obese with significantly large body habitus. Patient currently living in a care home house and is noncompliant with any medication and outpatient follow-up. Patient is short of breath and continues to be short of breath with conversation and minimal exertion. Patient will need outpatient evaluation by pulmonary for sleep apnea 01/23/2025 Patient is seen in follow-up today continues on IV Lasix with cardiology following. Lasix is being increased and adjustments to medications including adding Farxiga. Patient and family inquiring when patient can potentially go home. Patient is currently maintained on oxygen and will likely need oxygen on discharge as patient desats quickly into the high 70s and low 80s. Encouraged increase activity as tolerated Review of systems: Constitutional: No reports of fatigue, fever, or chills Cardiovascular: No reports of chest pain or palpitations Respiratory: No reports of worsening shortness of breath or cough GI: No reports of nausea, vomiting, or diarrhea : No reports of dysuria or retention Neurovascular: No reports of weakness or numbness All medications have been reviewed Physical exam: General appearance: alert, in no apparent distress, well-developed, morbidly obese, unkempt, ill-appearing, appears older than stated age, morbidly obese Head exam: Present: atraumatic, normocephalic, normal inspection Respiratory exam: Present: decreased breath sounds, prolonged expiratory, some faint crackles noted at the bases Cardiovascular Exam: Present: normal rhythm, tachycardia GI/Abdominal exam: Present: soft, morbidly obese distended, tenderness (diffuse), normal bowel sounds Extremities exam: Present: other (Bilateral lower extremity swelling nonpitting Neurological exam: Present: alert, oriented X3, CN II-XII intact Psychiatric exam: Present: normal affect, normal mood Skin exam: Present: warm, dry, intact, normal color. Absent: rash Assessment: 1. New onset CHF; acute exacerbation -Chest x-ray reveals cardiomegaly with pulmonary vascular congestion; BNP elevated at 2780 -Patient is not significantly clinically fluid overloaded, appears extremely large body habitus as well -Continue current medical chronic telemetry; monitor EKG and trend troponin -Patient is continued on IV Lasix twice daily; monitor strict CONNOR's, daily weights, renal function electrolytes -2D echo revealed a normal EF of 55 to 60% 2. Leukocytosis/possible UTI; lactic acid is elevated at 2.3; no signs of infection; chest x-ray is negative for any acute process -UA reveals small amount of leukocyte esterase -Will start patient empirically on IV Rocephin and repeat CBC; procalcitonin pending although suspicion for UTI is low 3. Elevated troponin; type II secondary to supply demand mismatch - initial troponin is at 0.057; cardiology is following 4. Hypertension; lisinopril 20 mg daily 5. Morbid obesity with a BMI of 55.6; possible obesity hypoventilation syndrome, will need outpatient testing GI prophylaxis DVT prophylaxis; SCDs/subcu heparin CODE STATUS; full code The impression and plan of care has been dictated by Nkechi Velásquez, Nurse Practitioner as directed. Dr. Janeth MD I have performed a history and examination and MDM of this patient, discussed the same with the dictator, and agree with the dictator's assessment and plan as written ,documented as a scribe. Based on total visit time, I have performed more than 50% of the visit. Objective - Vital Signs Vital signs: Vital Signs Temp 98.6 F 01/23/25 07:55 Pulse 75 01/23/25 07:55 Resp 19 01/23/25 07:55 BP 122/49 01/23/25 07:55 Pulse Ox 91 L 01/23/25 07:56 FiO2 Intake & Output 01/22/25 01/23/25 01/23/25 18:59 06:59 18:59 Intake Total 640.330 9909 374.31 Output Total 1500 604 Balance -967.833 488 374.31 Weight 180.9 kg 178.4 kg Intake: IV 20 10 Invasive Line 1 20 10 Intake, IV Titration 54.167 194.31 Amount Heparin Sod,Pork in 0.45% 54.167 194.31 NaCl 25,000 unit In 0.45 % NaCl 1 250ml.bag @ 5. 5279 UNITS/KG/HR 10 mls/ hr IV .Q24H [facility] Rx#: [id number] Oral 458 1082 180 Output: Urine 1500 604 Other: Voiding Method Toilet - Labs CBC & Chem 7: 01/23/25 06:32 01/23/25 06:32 Labs: Abnormal Lab Results - Last 24 Hours (Table) 01/22/25 01/22/25 01/22/25 Range/Units 07:10 11:28 14:18 WBC 15.6 H (3.8-10.6) k/uL MCHC 30.2 L (31.0-37.0) g/dL RDW 16.2 H (11.5-15.5) % Neutrophils # 13.2 H (1.3-7.7) k/uL PT 12.9 H (10.0-12.5) sec INR 1.2 H (<1.2) APTT (22.0-30.0) sec Chloride (98-107) mmol/L Carbon Dioxide (22-30) mmol/L Glucose (74-99) mg/dL Hemoglobin A1c 7.9 H (<=6.0) % 01/22/25 01/22/25 01/23/25 Range/Units 17:22 23:56 06:32 WBC (3.8-10.6) k/uL MCHC (31.0-37.0) g/dL RDW (11.5-15.5) % Neutrophils # (1.3-7.7) k/uL PT (10.0-12.5) sec INR (<1.2) APTT 38.3 H 57.7 H (22.0-30.0) sec Chloride 93 L (98-107) mmol/L Carbon Dioxide 39 H (22-30) mmol/L Glucose 137 H (74-99) mg/dL Hemoglobin A1c (<=6.0) % 01/23/25 01/23/25 Range/Units 06:32 06:32 WBC 13.9 H (3.8-10.6) k/uL MCHC 29.6 L (31.0-37.0) g/dL RDW 16.0 H (11.5-15.5) % Neutrophils # 11.6 H (1.3-7.7) k/uL PT 13.0 H (10.0-12.5) sec INR 1.2 H (<1.2) APTT 69.8 H (22.0-30.0) sec Chloride (98-107) mmol/L Carbon Dioxide (22-30) mmol/L Glucose (74-99) mg/dL Hemoglobin A1c (<=6.0) %
[2025-01-24 08:22] LABS: Anisocytosis Slight; Basophils % (A) 0 %; Eosinophils # (A) 0.1 k/uL (0-0.7); Eosinophils % (A) 1 %; HGB 13.3 gm/dL (13.0-17.5); Hypochromasia Marked; Lymphocytes % (A) 7 %; MCH 29.9 pg (25.0-35.0); MCHC 30.1 g/dL (31.0-37.0); MCV 99.1 fL (80.0-100.0); Macrocytosis Slight; Mean Platelet Volume 8.1; Monocytes # (A) 0.8 k/uL (0-1.0); Monocytes % (A) 6 %; Neutrophils # (A) 11.2 k/uL (1.3-7.7); Neutrophils % (A) 85 %; Platelet Count 161 k/uL (150-450); Poikilocytosis Slight; RBC 4.44 m/uL (4.30-5.90); RDW 16.2 % (11.5-15.5); WBC 13.2 k/uL (3.8-10.6)
[2025-01-24 08:43] LABS: African American GFR (CKD) >90 (>60 ml/min/1.73 sqM); Blood Urea Nitrogen 13 mg/dL (9-20); Calcium 8.6 mg/dL (8.4-10.2); Chloride 91 mmol/L (98-107); Glucose 126 mg/dL (74-99); Non-African American GFR(CKD) >90 (>60 ml/min/1.73 sqM); Sodium 138 mmol/L (137-145)
[2025-01-24 08:49] LABS: Anion Gap 6 mmol/L
[2025-01-24 08:53] LABS: Carbon Dioxide 41 mmol/L (22-30)
[2025-01-24] MEDS: DAPAGLIFLOZIN PROPANEDIOL 10 MG TABLET PO SCH (09:01)
--- NOTE | 2025-01-24 15:43 | P.PN ---
Subjective Patient was seen and examined with the resident I agree with the documented assessment and plan Plan Goal is to diurese patient. Will do complete nephron blockade with 1 dose of Diamox, metolazone, Lasix 40 mg [facility] times [facility] He would benefit from CPAP machine. He has undiagnosed sleep apnea 64-year-old male with past medical history of hypertension presents with complaints of abdominal pain and shortness of breath. Cardiology consulted for new onset CHF. States that shortness of breath was getting worse over the last 2 weeks and during this time also noticed swelling in the bilateral lower extremities. Admits to orthopnea during this time, states he is only able to sleep in a recliner. Reports he previously was on lisinopril and hydrochlorothiazide up until August of last year when he had an insurance p [employer] and was no longer able to receive the medication. Admits to being a smoker 1 pack a day 20 years ago. Most recent echo in 2018 showed EF 50 to 55% with left atrial dilation. Past surgical and family history unremarkable. No previous cardiac procedures. Vitals: Heart rate 94, respiratory rate 18, BP 183/83, O2 saturation 96% on 3 L Labs: Significant for WBC 14.9, hemoglobin 14, MCV 100, troponin peaked at 0.068, BNP 2780, cholesterol 180, LDL 117, and HDL 44 EKG: Sinus tachycardia CXR: Cardiomegaly plus pulmonary vascular congestion 3/ Patient seen and examined in the cardiac stepdown unit. No significant events. Yesterday, patient underwent echo which showed EF 55 to 60% with no obvious wall motion abnormalities. Overnight patient had bursts of PVT's lasting less than 30 seconds. TSH and magnesium ordered yesterday were within normal limits, A1c was 7.9. Blood pressures 122/49, heart rate 75, pulse ox 91% on 3 L. Repeat blood work reveals WBC 13.9, hemoglobin 13.4, sodium 139, potassium 4.1, chloride 93, bicarb 39, glucose 137, and TSH 1.19. Patient continues to have good urine output, documented that he is put out at least 1 L but after speaking with nursing staff they report the patient "does not aim well "and they believe his urine output is greater than what is actually recorded. 3/ Patient seen and examined in the cardiac stepdown unit. No significant overnight events. Patient had a urine output of 2 L in the last 24 hours, nurses continue to mention that he has trouble aiming and believe the urine output is greater than is what is actually being recorded. Heart rate 62, respiratory rate 18, blood pressure 139/77, O2 saturation 98% on 3 L. Repeat blood work reveals WBC 13.2, hemoglobin 13.3, sodium 138, bicarb 41. Patient continues to have lower extremity swelling with no marked improvement from previous days. REVIEW OF SYSTEMS At the time of my exam: CONSTITUTIONAL: Denies fever or chills. CARDIOVASCULAR: no chest pain, + shortness of breath, no orthopnea, PND or palpitations. RESPIRATORY: Denies cough. GASTROINTESTINAL: Denies abdominal pain, diarrhea, constipation, nausea or vomiting. MUSCULOSKELETAL: Denies myalgias. NEUROLOGIC: Denies numbness, tingling or weakness. ENDOCRINE: Denies fatigue, weight change, polydipsia or polyurina. GENITOURINARY: Denies burning, hematuria or urgency with micturation. HEMATOLOGIC: Denies history of anemia or bleeding. PHYSICAL EXAM Vital signs reviewed. General: non toxic, no distress, morbidly obese HEENT: Head is normocephalic. Pupils are equal, round. Sclerae anicteric. Mucous membranes of the mouth are moist. No JVD. No carotid bruit. Cardiovascular: S1S2 reg, no murmur, 2-3+ pitting edema bilaterally up to the knee, worse in left leg Lungs: Decreased air entry bilaterally, no rhonchi, no rales, no accessory muscle use, mild wheezing auscultated bilaterally Abdominal: soft, nontender to palpation, no guarding NEUROLOGIC EXAMINATION: Patient is awake, alert and oriented x3. ASSESSMENT -Acute CHF exacerbation -NSTEMI -Elevated troponin -Hypercapnia -Undiagnosed NAHEED -Morbid obesity -Hypertension -Hyperglycemia PLAN -Continue Lipitor 40 daily and aspirin 81 mg daily -Continue Coreg 6.25 mg twice daily, losartan 25 mg daily, and IV heparin with bolus -Continue Lasix to 40 mg IV 3 times daily -One-time dose of Diamox 250 mg -Increase Aldactone to 25 mg daily -Metolazone 5 mg daily, to be given 30 minutes after Lasix -Ordered CPAP for likely NAHEED, also in the setting of elevated bicarb -CBC and BMP and magnesium -Continue telemetry -Strict I's and O's, daily weights, fluid restrict to 2 L -Continue Farxiga 10 mg Objective - Vital Signs Vital signs: Vital Signs Temp 97.9 F 01/24/25 12:10 Pulse 62 01/24/25 12:10 Resp 18 01/24/25 12:10 BP 139/77 01/24/25 12:10 Pulse Ox 98 01/24/25 12:10 FiO2 Intake & Output 01/23/25 01/24/25 01/24/25 18:59 06:59 18:59 Intake Total 734.31 250 118 Balance 734.31 250 118 Weight 177.6 kg Intake: Intake, IV Titration 194.31 250 Amount Heparin Sod,Pork in 0.45% 194.31 250 NaCl 25,000 unit In 0.45 % NaCl 1 250ml.bag @ 5. 5279 UNITS/KG/HR 10 mls/ hr IV .Q24H [facility] Rx#: [id number] Oral 540 118 Other: Voiding Method Toilet Toilet Toilet # Voids 2 1 - Labs CBC & Chem 7: 01/24/25 07:58 01/24/25 07:58 Labs: Abnormal Lab Results - Last 24 Hours (Table) 01/24/25 01/24/25 01/24/25 Range/Units 07:58 07:58 07:58 WBC 13.2 H (3.8-10.6) k/uL MCHC 30.1 L (31.0-37.0) g/dL RDW 16.2 H (11.5-15.5) % Neutrophils # 11.2 H (1.3-7.7) k/uL APTT 56.3 H (22.0-30.0) sec Chloride 91 L (98-107) mmol/L Carbon Dioxide 41 H* (22-30) mmol/L Glucose 126 H (74-99) mg/dL
[2025-01-24 16:34] LABS: VBG PH 7.3 (7.31-7.41)
[2025-01-24] MEDS: acetaZOLAMIDE 250 MG TAB PO ONE (16:50)
[2025-01-24 17:03] LABS: ABG Base Excess 11.3 mmol/L; ABG Oxygen Saturation 95.5 % (94-97); ABG PH 7.34 (7.35-7.45); ABG PO2 78 mmHg (83-108); ABG TCO2 43 mmol/L (19-24); Allen Test Performed? Yes
[2025-01-24 17:17] LABS: ABG HCO3 41 mmol/L (21-25); ABG PCO2 76 mmHg (35-45)
--- NOTE | 2025-01-25 06:07 | P.PN ---
Subjective Progress Note Date: 01/24/25 64-year-old male who presents to the emergency department for abdominal pain and shortness of breath. States that he has been dealing with shortness of breath for the last 2 weeks. He has also started to notice swelling in his lower extremities and abdomen. Today he felt a pain in his left upper quadrant that occurred about 2 hours prior to arrival. This has since persisted, prompting him to come here for evaluation. Denies any nausea or vomiting. Denies any changes in bowel or bladder habits. Denies any history of respiratory or cardiac problems. Patient hypoxic on arrival with an oxygen of 87%. This improved with 2 L via nasal cannula. Lab work demonstrates leukocytosis with a white blood cell count of 17.5. D- dimer negative. Lactic acid elevated at 2.3. BNP elevated at 2780 and troponin elevated at 0.057. Patient denies a history of CHF. Chest x-ray demonstrates cardiomegaly with pulmonary vascular congestion. COVID, influenza, and RSV testing negative. Urinalysis negative for signs of infection. Given his abdominal pain ER attempted to get a CT scan on the patient. However, he could not comfortably lay flat for the testing. 01/22/2025 Patient is seen in follow-up today with cardiology following. Patient is being started on IV Lasix and was given a dose of Diamox. 2D echo ordered and pending and patient denies any previous history of heart failure. Patient reports significant swelling although is also morbidly obese with significantly large body habitus. Patient currently living in a group home house and is noncompliant with any medication and outpatient follow-up. Patient is short of breath and continues to be short of breath with conversation and minimal exertion. Patient will need outpatient evaluation by pulmonary for sleep apnea 01/23/2025 Patient is seen in follow-up today continues on IV Lasix with cardiology following. Lasix is being increased and adjustments to medications including adding Farxiga. Patient and family inquiring when patient can potentially go home. Patient is currently maintained on oxygen and will likely need oxygen on discharge as patient desats quickly into the high 70s and low 80s. Encouraged increase activity as tolerated 01/24/2025 Patient is seen in follow-up today continues on IV Lasix with cardiology following continues with significant volume overload and 1-2+ pitting edema of lower extremities. Patient is extremely lethargic today maintained on 3 L of oxygen although is found often per nursing staff to have his oxygen off and desats quickly into the 70s. Patient will most likely require oxygen on discharge as there is high concerns with obesity hypoventilation syndrome. Per nursing staff patient is mostly sleeping throughout the day and will obtain ABGs. Carbon dioxide at 41 today otherwise kidney function stable with a sodium of 138 potassium 4.0, BUN 13 and creatinine 0.83. Patient currently resides at a group home house and unsure of discharge planning. Recommend PT/OT therapy e valuation and case management/social work consult. Review of systems: Constitutional: reports of fatigue, no fever, or chills Cardiovascular: No reports of chest pain or palpitations Respiratory: reports of ongoing shortness of breath GI: No reports of nausea, vomiting, or diarrhea : No reports of dysuria or retention Neurovascular: reports of generalized weakness All medications have been reviewed Physical exam: Gen: This is a 64-year-old male who is currently lethargic although arousable, fatigues easily, well-developed, morbidly obese, ill-appearing, appears older than stated age, unkempt and disheveled HEENT: Head is atraumatic, normocephalic. Pupils equal, round. Sclerae is anict ingrid. NECK: Supple. No JVD. No lymphadenopathy. No thyromegaly. LUNGS: Diminished breath sounds bilaterally with some faint crackles noted at the bases. No intercostal retractions. HEART: S1, S2 are muffled ABDOMEN: Soft. Morbidly obese bowel sounds are present. No masses. No tenderness. EXTREMITIES: Bilateral lower extremity edema noted 1-2+ pitting. No calf tenderness. Tether noted NEUROLOGICAL: Patient is lethargic although arousable, alert and oriented x3. Cranial nerves 2 through 12 are grossly intact. Diffusely weak Assessment: -New onset CHF; acute exacerbation, pulmonary vascular congestion noted on imaging and BNP was elevated at 2780, preserved EF of 55 to 60% -Acute hypoxic respiratory failure secondary to above, maintained on 3 L -Leukocytosis/possible UTI; lactic acid is elevated at 2.3; no signs of infection; chest x-ray is negative for any acute process -Elevated troponin; type II secondary to supply demand mismatch -Hypertension; lisinopril 20 mg daily -Morbid obesity with a BMI of 55.6; possible obesity hypoventilation syndrome, will need outpatient testing GI prophylaxis DVT prophylaxis; SCDs/subcu heparin CODE STATUS; full code Plan: Patient is continued on IV Lasix with cardiology following Continue supportive supplemental oxygen at 3 L and does not wear oxygen outpatient. Likely sleep apnea although undiagnosed concerns for obesity hypoventilation syndrome Patient sleeping throughout most of the day and more lethargic somewhat obtunded, ABGs obtained with a pH of 7.3, pCO2 elevated at 76, bicarb elevated at 41 and will attempt BiPAP Recommend PT/OT therapy evaluation and encouraged increase activity as tolerated Patient is sitting up in the chair mostly sleeping Case management/social work to evaluate as patient currently lives at a group home house and unsure of discharge planning at this time. The impression and plan of care has been dictated by Nkechi Velásquez, Nurse Practitioner as directed. Dr. Janeth MD I have performed a history and examination and MDM of this patient, discussed the same with the dictator, and agree with the dictator's assessment and plan as written ,documented as a scribe. Based on total visit time, I have performed more than 50% of the visit. Objective - Vital Signs Vital signs: Vital Signs Temp 98.0 F 01/24/25 04:00 Pulse 69 01/24/25 04:00 Resp 18 01/24/25 04:00 BP 141/73 01/24/25 04:00 Pulse Ox 95 01/24/25 08:19 FiO2 Intake & Output 01/23/25 01/24/25 01/24/25 18:59 06:59 18:59 Intake Total 734.31 250 118 Balance 734.31 250 118 Weight 177.6 kg Intake: Intake, IV Titration 194.31 250 Amount Heparin Sod,Pork in 0.45% 194.31 250 NaCl 25,000 unit In 0.45 % NaCl 1 250ml.bag @ 5. 5279 UNITS/KG/HR 10 mls/ hr IV .Q24H [facility] Rx#: [id number] Oral 540 118 Other: Voiding Method Toilet Toilet # Voids 2 1 - Labs CBC & Chem 7: 01/24/25 07:58 01/24/25 07:58 Labs: Abnormal Lab Results - Last 24 Hours (Table) 01/23/25 01/24/25 01/24/25 Range/Units 12:20 07:58 07:58 WBC 13.2 H (3.8-10.6) k/uL MCHC 30.1 L (31.0-37.0) g/dL RDW 16.2 H (11.5-15.5) % Neutrophils # 11.2 H (1.3-7.7) k/uL APTT 52.2 H 56.3 H (22.0-30.0) sec Chloride (98-107) mmol/L Carbon Dioxide (22-30) mmol/L Glucose (74-99) mg/dL 01/24/25 Range/Units 07:58 WBC (3.8-10.6) k/uL MCHC (31.0-37.0) g/dL RDW (11.5-15.5) % Neutrophils # (1.3-7.7) k/uL APTT (22.0-30.0) sec Chloride 91 L (98-107) mmol/L Carbon Dioxide 41 H* (22-30) mmol/L Glucose 126 H (74-99) mg/dL
[2025-01-25] MEDS: SPIRONOLACTONE 25 MG TAB PO SCH (08:14)
[2025-01-25] MEDS: metOLazone 5 MG TAB PO SCH (08:14)
[2025-01-25 08:16] LABS: HCT 44.3 % (39.0-53.0); HGB 13.2 gm/dL (13.0-17.5); Hypochromasia Marked; MCH 29.7 pg (25.0-35.0); MCHC 29.8 g/dL (31.0-37.0); MCV 99.8 fL (80.0-100.0); Macrocytosis Slight; Mean Platelet Volume 8.7; Platelet Count 147 k/uL (150-450); Poikilocytosis Slight; RBC 4.44 m/uL (4.30-5.90); RDW 15.7 % (11.5-15.5); WBC 13.1 k/uL (3.8-10.6)
[2025-01-25 08:41] LABS: African American GFR (CKD) >90 (>60 ml/min/1.73 sqM); Anion Gap 6 mmol/L; Blood Urea Nitrogen 17 mg/dL (9-20); Calcium 8.5 mg/dL (8.4-10.2); Chloride 92 mmol/L (98-107); Glucose 119 mg/dL (74-99); Non-African American GFR(CKD) >90 (>60 ml/min/1.73 sqM); Potassium 3.9 mmol/L (3.5-5.1); Sodium 138 mmol/L (137-145)
[2025-01-25 09:09] LABS: Carbon Dioxide 40 mmol/L (22-30)
--- NOTE | 2025-01-25 12:18 | P.PN ---
Subjective Progress Note Date: 01/25/25 64-year-old male with past medical history of hypertension presents with complaints of abdominal pain and shortness of breath. Cardiology consulted for new onset CHF. States that shortness of breath was getting worse over the last 2 weeks and during this time also noticed swelling in the bilateral lower extremities. Admits to orthopnea during this time, states he is only able to sleep in a recliner. Reports he previously was on lisinopril and hydrochlorothiazide up until August of last year when he had an insurance problem and was no longer able to receive the medication. Admits to being a smo ker 1 pack a day 20 years ago. Most recent echo in 2018 showed EF 50 to 55% with left atrial dilation. Past surgical and family history unremarkable. No previous cardiac procedures. Vitals: Heart rate 94, respiratory rate 18, BP 183/83, O2 saturation 96% on 3 L Labs: Significant for WBC 14.9, hemoglobin 14, MCV 100, troponin peaked at 0.068, BNP 2780, cholesterol 180, LDL 117, and HDL 44 EKG: Sinus tachycardia CXR: Cardiomegaly plus pulmonary vascular congestion 3/ Patient seen and examined in the cardiac stepdown unit. No significant events. Yesterday, patient underwent echo which showed EF 55 to 60% with no obvious wall motion abnormalities. Overnight patient had bursts of PVT's lasting less than 30 seconds. TSH and magnesium ordered yesterday were within normal limits, A1c was 7.9. Blood pressures 122/49, heart rate 75, pulse ox 91% on 3 L. Repeat blood work reveals WBC 13.9, hemoglobin 13.4, sodium 139, potassium 4.1, chloride 93, bicarb 39, glucose 137, and TSH 1.19. Patient continues to have good urine output, documented that he is put out at least 1 L but after speaking with nursing staff they report the patient "does not aim well "and they believe his urine output is greater than what is actually recorded. 3/ Patient seen and examined in the cardiac stepdown unit. No significant overnight events. Patient had a urine output of 2 L in the last 24 hours, rhett harley continue to mention that he has trouble aiming and believe the urine output is greater than is what is actually being recorded. Heart rate 62, respiratory rate 18, blood pressure 139/77, O2 saturation 98% on 3 L. Repeat blood work reveals WBC 13.2, hemoglobin 13.3, sodium 138, bicarb 41. Patient continues to have lower extremity swelling with no marked improvement from previous days. 01/25/2025 Patient still continues to be very lethargic and short of breath. We did try to give him CPAP last night however he did not use it much. Noticed to be hypertensive today, kidney function is stable, significantly hypercapnic. PHYSICAL EXAM Vital signs reviewed. General: non toxic, no distress, morbidly obese HEENT: Head is normocephalic. Pupils are equal, round. Sclerae anicteric. Mucous membranes of the mouth are moist. No JVD. No carotid bruit. Cardiovascular: S1S2 reg, no murmur, 1+ pitting edema bilaterally up to the knee, worse in left leg Lungs: Decreased air entry bilaterally, no rhonchi, no rales, no accessory muscle use, mild wheezing auscultated bilaterally Abdominal: soft, nontender to palpation, no guarding NEUROLOGIC EXAMINATION: Patient is awake, alert and oriented x3. ASSESSMENT -Acute CHF exacerbation -NSTEMI type II due to demand supply mismatch -Elevated troponin -Hypercapnia -Undiagnosed NAHEED -Morbid obesity -Hypertension -Type II DM PLAN -Continue Lipitor 40 daily and aspirin 81 mg daily -Continue Coreg 6.25 mg twice daily, losartan 50 daily. Discontinue IV heparin drip -Continue Lasix 40 mg IV 3 times daily. -Diamox 250 mg 2 doses -Aldactone to 25 mg daily -Ordered CPAP for likely NAHEED, also in the setting of elevated bicarb -Strict I's and O's, daily weights, fluid restrict to 2 L -Continue Farxiga 10 mg Discharge disposition, social work consult Once optimized from heart failure standpoint he will need ischemic evaluation on outpatient basis. Objective - Vital Signs Vital signs: Vital Signs Temp 98.2 F 01/25/25 11:25 Pulse 77 01/25/25 11:25 Resp 17 01/25/25 11:25 BP 175/76 01/25/25 11:25 Pulse Ox 97 01/25/25 11:25 FiO2 40 01/24/25 17:10 Intake & Output 01/24/25 01/25/25 01/25/25 18:59 06:59 18:59 Intake Total 354 250 240 Balance 354 250 240 Weight 176.6 kg Intake: Intake, IV Titration 250 Amount Heparin Sod,Pork in 0.45% 250 NaCl 25,000 unit In 0.45 % NaCl 1 250ml.bag @ 5. 5279 UNITS/KG/HR 10 mls/ hr IV .Q24H [facility] Rx#: [id number] Oral 354 240 Other: Voiding Method Toilet Toilet Toilet # Voids 1 2 - Labs CBC & Chem 7: 01/25/25 07:52 01/25/25 07:52 Labs: Abnormal Lab Results - Last 24 Hours (Table) 01/24/25 01/24/25 01/25/25 Range/Units 16:09 16:54 07:52 WBC 13.1 H (3.8-10.6) k/uL MCHC 29.8 L (31.0-37.0) g/dL RDW 15.7 H (11.5-15.5) % Plt Count 147 L (150-450) k/uL APTT (22.0-30.0) sec ABG pH 7.34 L (7.35-7.45) ABG pCO2 76 H* (35-45) mmHg ABG pO2 78 L (83-108) mmHg ABG HCO3 41 H* (21-25) mmol/L ABG Total CO2 43 H (19-24) mmol/L VBG pH 7.30 L (7.31-7.41) VBG pCO2 83 H* (37-51) mmHg VBG HCO3 41 H (24-28) mmol/L Chloride (98-107) mmol/L Carbon Dioxide (22-30) mmol/L Glucose (74-99) mg/dL 01/25/25 01/25/25 Range/Units 07:52 07:52 WBC (3.8-10.6) k/uL MCHC (31.0-37.0) g/dL RDW (11.5-15.5) % Plt Count (150-450) k/uL APTT 48.4 H (22.0-30.0) sec ABG pH (7.35-7.45) ABG pCO2 (35-45) mmHg ABG pO2 (83-108) mmHg ABG HCO3 (21-25) mmol/L ABG Total CO2 (19-24) mmol/L VBG pH (7.31-7.41) VBG pCO2 (37-51) mmHg VBG HCO3 (24-28) mmol/L Chloride 92 L (98-107) mmol/L Carbon Dioxide 40 H (22-30) mmol/L Glucose 119 H (74-99) mg/dL
[2025-01-25] MEDS: LOSARTAN 25 MG TAB PO STA (12:41)
[2025-01-25] MEDS: acetaZOLAMIDE 250 MG TAB PO SCH (12:41)
--- NOTE | 2025-01-25 15:08 | P.PN ---
Subjective Progress Note Date: 01/25/25 64-year-old male who presents to the emergency department for abdominal pain and shortness of breath. States that he has been dealing with shortness of breath for the last 2 weeks. He has also started to notice swelling in his lower extremities and abdomen. Today he felt a pain in his left upper quadrant that occurred about 2 hours prior to arrival. This has since persisted, prompting him to come here for evaluation. Denies any nausea or vomiting. Denies any changes in bowel or bladder habits. Denies any history of respiratory or cardiac problems. Patient hypoxic on arrival with an oxygen of 87%. This improved with 2 L via nasal cannula. Lab work demonstrates leukocytosis with a white blood cell count of 17.5. D- dimer negative. Lactic acid elevated at 2.3. BNP elevated at 2780 and troponin elevated at 0.057. Patient denies a history of CHF. Chest x-ray demonstrates cardiomegaly with pulmonary vascular congestion. COVID, influenza, and RSV testing negative. Urinalysis negative for signs of infection. Given his abdominal pain ER attempted to get a CT scan on the patient. However, he could not comfortably lay flat for the testing. 01/22/2025 Patient is seen in follow-up today with cardiology following. Patient is being started on IV Lasix and was given a dose of Diamox. 2D echo ordered and pending and patient denies any previous history of heart failure. Patient reports significant swelling although is also morbidly obese with significantly large body habitus. Patient currently [facility] a jail house and is noncompliant with any medication and outpatient follow-up. Patient is short of breath and continues to be short of breath with conversation and minimal exertion. Patient will need outpatient evaluation by pulmonary for sleep apnea 01/23/2025 Patient is seen in follow-up today continues on IV Lasix with cardiology following. Lasix is being increased and adjustments to medications including adding Farxiga. Patient and family inquiring when patient can potentially go home. Patient is currently maintained on oxygen and will likely need oxygen on discharge as patient desats quickly into the high 70s and low 80s. Encouraged increase activity as tolerated 01/24/2025 Patient is seen in follow-up today continues on IV Lasix with cardiology fo llowing continues with significant volume overload and 1-2+ pitting edema of lower extremities. Patient is extremely lethargic today maintained on 3 L of oxygen although is found often per nursing staff to have his oxygen off and desats quickly into the 70s. Patient will most likely require oxygen on discharge as there is high concerns with obesity hypoventilation syndrome. Per nursing staff patient is mostly sleeping throughout the day and will obtain ABGs. Carbon dioxide at 41 today otherwise kidney function stable with a sodium of 138 potassium 4.0, BUN 13 and creatinine 0.83. Patient currently resides at a jail house and unsure of discharge planning. Recommend PT/OT therapy eval uation and case management/social work consult. 01/25/2025 Is eval today sitting up in the chair. He reports improvement in his shortness of breath he seems to be more awake and alert as compared to yesterday. He was placed on a BiPAP with settings of 12/5 at 40% FiO2 yesterday secondary to ABGs revealing pH level of 7.34, pCO2 of 76 pO2 of 78 HCO3 of 41 and a total CO2 level of 43. Today's electrolytes and renal function are stable. His white blood cell count is 13.1. He continues to have significant lower extremity edema. He has been continued on IV Lasix and diuresing well as he keeps having to get up to the restroom he has not been able to wear the BiPAP much today. Cardiogram comes back revealing an EF of 55 to 60% with severe right ventricle dilation with moderate pulmonary hypertension. Mild mitral and tricuspid regurgitation and mild pulmonary hypertension. Review of systems: Constitutional: reports of fatigue, no fever, or chills Cardiovascular: No reports of chest pain or palpitations Respiratory: reports of ongoing shortness of breath GI: No reports of nausea, vomiting, or diarrhea : No reports of dysuria or retention Neurovascular: reports of generalized weakness All medications have been reviewed Physical exam: Gen: This is a 64-year-old male who is currently lethargic although arousable, fatigues easily, well-developed, morbidly obese, ill-appearing, appears older than stated age, unkempt and disheveled HEENT: Head is atraumatic, normocephalic. Pupils equal, round. Sclerae is anicteric. NECK: Supple. No JVD. No lymphadenopathy. No thyromegaly. LUNGS: Diminished breath sounds bilaterally with some faint crackles noted at the bases. No intercostal retractions. HEART: S1, S2 are muffled ABDOMEN: Soft. Morbidly obese bowel sounds are present. No masses. No tenderness. EXTREMITIES: Bilateral lower extremity edema noted 1-2+ pitting. No calf tenderness. Tether noted NEUROLOGICAL: Patient is lethargic although arousable, alert and oriented x3. Cranial nerves 2 through 12 are grossly intact. Diffusely weak Assessment: -New onset CHF; acute exacerbation, pulmonary vascular congestion noted on imaging and BNP was elevated at 2780, preserved EF of 55 to 60% -Acute hypoxic respiratory failure secondary to above, maintained on 3 L -Leukocytosis/possible UTI; lactic acid is elevated at 2.3; no signs of infection; chest x-ray is negative for any acute process -Elevated troponin; type II secondary to supply demand mismatch -Hypertension; lisinopril 20 mg daily -Morbid obesity with a BMI of 55.6; possible obesity hypoventilation syndrome, will need outpatient testing -New diabetes mellitus type 2 with hemoglobin A1C of 7.9. GI prophylaxis DVT prophylaxis; SCDs/subcu heparin CODE STATUS; full code Plan: Patient is continued on IV Lasix with cardiology following; Recommend strict intake and output monitoring Continue supportive supplemental oxygen at 3 L and does not wear oxygen outpatient. Likely sleep apnea although undiagnosed concerns for obesity hypoventilation syndrome Patient sleeping throughout most of the day and more lethargic somewhat obtunded, ABGs obtained with a pH of 7.3, pCO2 elevated at 76, bicarb elevated at 41 and will attempt BiPAP Pulmonology has been consulted Patient has been started on oral diamox daily Recommend PT/OT therapy evaluation and encouraged increase activity as tolerated Patient is sitting up in the chair mostly sleeping Case management/social work to evaluate as patient currently lives at a jail house and unsure of discharge planning at this time. Continue to monitor electrolytes and renal function The impression and plan of care has been dictated by Gail Davis Nurse Practitioner as directed. Dr. Janeth MD I have performed a history and examination and MDM of this patient, discussed the same with the dictator, and agree with the dictator's assessment and plan as written ,documented as a scribe. Based on total visit time, I have performed more than 50% of the visit. Objective - Vital Signs Vital signs: Vital Signs Temp 98.2 F 01/25/25 11:25 Pulse 77 01/25/25 11:25 Resp 17 01/25/25 11:25 BP 175/76 01/25/25 11:25 Pulse Ox 97 01/25/25 11:25 FiO2 40 01/24/25 17:10 Intake & Output 01/24/25 01/25/25 01/25/25 18:59 06:59 18:59 Intake Total 354 250 660.933 Balance 354 250 660.933 Weight 176.6 kg Intake: Intake, IV Titration 250 180.933 Amount Heparin Sod,Pork in 0.45% 250 180.933 NaCl 25,000 unit In 0.45 % NaCl 1 250ml.bag @ 5. 5279 UNITS/KG/HR 10 mls/ hr IV .Q24H [facility] Rx#: [id number] Oral 354 480 Other: Voiding Method Toilet Toilet Toilet # Voids 1 2 - Labs CBC & Chem 7: 01/25/25 07:52 01/25/25 07:52 Labs: Abnormal Lab Results - Last 24 Hours (Table) 01/24/25 01/24/25 01/25/25 Range/Units 16:09 16:54 07:52 WBC 13.1 H (3.8-10.6) k/uL MCHC 29.8 L (31.0-37.0) g/dL RDW 15.7 H (11.5-15.5) % Plt Count 147 L (150-450) k/uL APTT (22.0-30.0) sec ABG pH 7.34 L (7.35-7.45) ABG pCO2 76 H* (35-45) mmHg ABG pO2 78 L (83-108) mmHg ABG HCO3 41 H* (21-25) mmol/L ABG Total CO2 43 H (19-24) mmol/L VBG pH 7.30 L (7.31-7.41) VBG pCO2 83 H* (37-51) mmHg VBG HCO3 41 H (24-28) mmol/L Chloride (98-107) mmol/L Carbon Dioxide (22-30) mmol/L Glucose (74-99) mg/dL 01/25/25 01/25/25 Range/Units 07:52 07:52 WBC (3.8-10.6) k/uL MCHC (31.0-37.0) g/dL RDW (11.5-15.5) % Plt Count (150-450) k/uL APTT 48.4 H (22.0-30.0) sec ABG pH (7.35-7.45) ABG pCO2 (35-45) mmHg ABG pO2 (83-108) mmHg ABG HCO3 (21-25) mmol/L ABG Total CO2 (19-24) mmol/L VBG pH (7.31-7.41) VBG pCO2 (37-51) mmHg VBG HCO3 (24-28) mmol/L Chloride 92 L (98-107) mmol/L Carbon Dioxide 40 H (22-30) mmol/L Glucose 119 H (74-99) mg/dL Assessment and Plan Time with Patient: Less than 30
[2025-01-25] MEDS: HEPARIN SODIUM,PORCINE 5,000 UNIT/ML 1 ML VIAL SQ SCH (15:59)
[2025-01-26 07:18] LABS: Basophils # (A) 0.1 k/uL (0-0.2); Basophils % (A) 0 %; Eosinophils # (A) 0.2 k/uL (0-0.7); Eosinophils % (A) 1 %; HCT 45.7 % (39.0-53.0); HGB 13.8 gm/dL (13.0-17.5); Hypochromasia Marked; Lymphocytes # (A) 0.8 k/uL (1.0-4.8); Lymphocytes % (A) 6 %; MCH 29.8 pg (25.0-35.0); MCHC 30.1 g/dL (31.0-37.0); Macrocytosis Slight; Mean Platelet Volume 8.1; Monocytes # (A) 0.8 k/uL (0-1.0); Monocytes % (A) 6 %; Neutrophils # (A) 11.6 k/uL (1.3-7.7); Neutrophils % (A) 85 %; Platelet Count 167 k/uL (150-450); RBC 4.62 m/uL (4.30-5.90); RDW 15.7 % (11.5-15.5); WBC 13.6 k/uL (3.8-10.6)
[2025-01-26 07:40] LABS: African American GFR (CKD) >90 (>60 ml/min/1.73 sqM); Blood Urea Nitrogen 23 mg/dL (9-20); Chloride 90 mmol/L (98-107); Glucose 121 mg/dL (74-99); Non-African American GFR(CKD) 87 (>60 ml/min/1.73 sqM); Potassium 3.7 mmol/L (3.5-5.1); Sodium 139 mmol/L (137-145)
[2025-01-26 07:47] LABS: Anion Gap 7 mmol/L
[2025-01-26 08:04] LABS: Carbon Dioxide 42 mmol/L (22-30)
[2025-01-26] MEDS: LOSARTAN 50 MG TAB PO SCH (08:21)
[2025-01-26] MEDS: ALBUTEROL NEBULIZED 2.5 MG/3 ML INHALATION SCH (11:32)
--- NOTE | 2025-01-26 14:05 | P.CNPUL ---
History of Present Illness Consult date: 01/26/25 Requesting physician: Norberto Gregg Reason for consult: dyspnea, other Chief complaint: Respiratory failure. History of present illness: Pulmonary consult dated January 26, 2025. 64-year-old male who initially presented to the emergency department, on January 21, complaining of abdominal pain. He also complained of shortness of breath. Apparently been having shortness of breath for about 2 weeks prior to admission. In addition, he complains of edema of both lower extremities, and abdomen. He also has some pain in the abdomen, prior to arrival. 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 The patient states that he smoked for only a few years. He does have a history of documented obstructive sleep apnea syndrome, but apparently his CPAP device does not work. He is seen today in room 372. He is sitting on the edge of the bed. He is currently on 3 L of oxygen. There is a CPAP device in his room. The patient used to be on inhalers, for his chronic bronchial asthma. He did have a blood gas done on the fifth, showing a pO2 of 78, pCO2 of 76, pH is 7.34. The patient is quite obese, may have obesity/hypoventilation syndrome (Pickwickian syndrome). It should be noted that the patient is not a particularly good historian. Current laboratory data includes a white count 13.6, hemoglobin 13.8, hematocrit 45.7, and platelet count 167,000. Sodium 139, potassium 3.7, chlorides 90, CO2 42, BUN 23, and creatinine 0.93. Glucose is 121. Calcium is 9. Previous chest x-ray was consistent with fluid overload. Review of Systems REVIEW OF SYSTEMS: CONSTITUTIONAL: Fatigue. NEUROLOGIC: [ Negative.] HEENT: [ Negative.] CARDIAC: Lower extremity edema. PULMONARY: Shortness of breath. GI: Abdominal pain. : [Negative.] RHEUMATOLOGIC: [ Negative.] IMMUNOLOGIC: [ Negative.] ENDOCRINE: [Negative. ] DERMATOLOGIC: [Negative.] Past Medical History Past Medical History: Hypertension History of Any Multi-Drug Resistant Organisms: None Reported Past Surgical History: No Surgical Hx Reported Past Psychological History: No Psychological Hx Reported Smoking Status: Former smoker Past Alcohol Use History: Rare Past Drug Use History: None Reported Medications and Allergies Home Medications Medication Instructions Recorded Confirmed Type No Known Home Medications 03/02/25 03/02/25 History Allergies Allergy/AdvReac Type Severity Reaction Status Date / Time tree nut Allergy Anaphylaxis Verified 01/21/25 16:21 Physical Exam Osteopathic Statement: *. No significant issues noted on an osteopathic structural exam other than those noted in the History and Physical/Consult. Vitals: Vital Signs Temp Pulse Pulse Resp BP Pulse Ox 01/26/25 11:27 61 22 150/79 93 L 01/26/25 08:08 96 01/26/25 08:00 98 F 75 20 164/79 94 L 01/26/25 03:32 98.2 F 67 28 H 134/77 90 L 01/25/25 23:13 98.5 F 72 22 156/89 91 L 01/25/25 19:56 97.9 F 81 20 134/77 94 L 01/25/25 15:54 98.1 F 68 17 181/72 94 L Intake and Output 01/25/25 01/26/25 01/26/25 22:59 06:59 14:59 Intake Total 240 598 Output Total 900 500 Balance 240 -900 98 Intake: Oral 240 598 Output: Urine 900 500 Other: Voiding Method Toilet Toilet Toilet # Voids 6 # Bowel Movements 1 Weight 172.3 kg No acute distress, oriented 3. Currently on 3 L. A very poor historian. HEENT examination is grossly unremarkable. Mucous membranes are moist. No oral lesions. Neck supple. Full range of motion. No adenopathy thyromegaly or neck vein distention. Cardiovascular examination reveals regular rhythm rate. S1-S2 normal. No S3 or S4. No discernible murmur noted. Heart sounds are distant. Lungs reveal scattered rhonchi. There are some basilar crackles. No wheezes. Breath sounds are equal bilaterally. Abdomen obese, with bowel sounds. No masses or tenderness. Extremities reveal lower extremity edema. No cyanosis or clubbing. Skin is without rash or lesion. Neurologic examination is brief but nonfocal. Results - Laboratory Findings CBC and BMP: 01/26/25 06:59 01/26/25 06:59 ABG ABG pH 7.34 (7.35-7.45) L 01/24/25 16:54 ABG pCO2 76 mmHg (35-45) H* 01/24/25 16:54 ABG pO2 78 mmHg (83-108) L 01/24/25 16:54 ABG O2 Saturation 95.5 % (94-97) 01/24/25 16:54 PT/INR, D-dimer PT 13.0 sec (10.0-12.5) H 01/23/25 06:32 INR 1.2 (<1.2) H 01/23/25 06:32 D-Dimer 0.59 mg/L FEU (<0.60) 01/21/25 14:18 Abnormal lab findings: Abnormal Labs 01/21/25 01/21/25 01/21/25 14:18 14:18 14:18 WBC 17.5 H MCV MCHC 30.7 L RDW 16.2 H Plt Count Neutrophils # 14.8 H Lymphocytes # PT 13.6 H INR 1.3 H APTT ABG pH ABG pCO2 ABG pO2 ABG HCO3 ABG Total CO2 VBG pH VBG pCO2 VBG HCO3 Chloride Carbon Dioxide BUN Glucose Hemoglobin A1c Plasma Lactic Acid Trevin Troponin I C-Reactive Protein Urine Protein 2+ H Urine Ketones Trace H Ur Leukocyte Esterase Small H Urine WBC 11 H Urine Mucus Few H 01/21/25 01/21/25 01/21/25 14:18 14:18 14:18 WBC MCV MCHC RDW Plt Count Neutrophils # Lymphocytes # PT INR APTT ABG pH ABG pCO2 ABG pO2 ABG HCO3 ABG Total CO2 VBG pH VBG pCO2 VBG HCO3 Chloride 95 L Carbon Dioxide 36 H BUN Glucose 136 H Hemoglobin A1c Plasma Lactic Acid Trevin 2.3 H* Troponin I 0.057 H* C-Reactive Protein Urine Protein Urine Ketones Ur Leukocyte Esterase Urine WBC Urine Mucus 01/21/25 01/21/25 01/22/25 17:37 21:33 07:10 WBC 14.9 H MCV 100.1 H MCHC 29.9 L RDW 16.0 H Plt Count Neutrophils # 12.8 H Lymphocytes # PT INR APTT ABG pH ABG pCO2 ABG pO2 ABG HCO3 ABG Total CO2 VBG pH VBG pCO2 VBG HCO3 Chloride Carbon Dioxide BUN Glucose Hemoglobin A1c Plasma Lactic Acid Trevin Troponin I 0.068 H* 0.057 H* C-Reactive Protein Urine Protein Urine Ketones Ur Leukocyte Esterase Urine WBC Urine Mucus 01/22/25 01/22/25 01/22/25 07:10 07:10 11:28 WBC MCV MCHC RDW Plt Count Neutrophils # Lymphocytes # PT 12.9 H INR 1.2 H APTT ABG pH ABG pCO2 ABG pO2 ABG HCO3 ABG Total CO2 VBG pH VBG pCO2 VBG HCO3 Chloride 92 L Carbon Dioxide 41 H* BUN Glucose 117 H Hemoglobin A1c 7.9 H Plasma Lactic Acid Trevin Troponin I C-Reactive Protein 2.9 H Urine Protein Urine Ketones Ur Leukocyte Esterase Urine WBC Urine Mucus 01/22/25 01/22/25 01/22/25 14:18 17:22 23:56 WBC 15.6 H MCV MCHC 30.2 L RDW 16.2 H Plt Count Neutrophils # 13.2 H Lymphocytes # PT INR APTT 38.3 H 57.7 H ABG pH ABG pCO2 ABG pO2 ABG HCO3 ABG Total CO2 VBG pH VBG pCO2 VBG HCO3 Chloride Carbon Dioxide BUN Glucose Hemoglobin A1c Plasma Lactic Acid Trevin Troponin I C-Reactive Protein Urine Protein Urine Ketones Ur Leukocyte Esterase Urine WBC Urine Mucus 01/23/25 01/23/25 01/23/25 06:32 06:32 06:32 WBC 13.9 H MCV MCHC 29.6 L RDW 16.0 H Plt Count Neutrophils # 11.6 H Lymphocytes # PT 13.0 H INR 1.2 H APTT 69.8 H ABG pH ABG pCO2 ABG pO2 ABG HCO3 ABG Total CO2 VBG pH VBG pCO2 VBG HCO3 Chloride 93 L Carbon Dioxide 39 H BUN Glucose 137 H Hemoglobin A1c Plasma Lactic Acid Trevin Troponin I C-Reactive Protein Urine Protein Urine Ketones Ur Leukocyte Esterase Urine WBC Urine Mucus 01/23/25 01/24/25 01/24/25 12:20 07:58 07:58 WBC 13.2 H MCV MCHC 30.1 L RDW 16.2 H Plt Count Neutrophils # 11.2 H Lymphocytes # PT INR APTT 52.2 H 56.3 H ABG pH ABG pCO2 ABG pO2 ABG HCO3 ABG Total CO2 VBG pH VBG pCO2 VBG HCO3 Chloride Carbon Dioxide BUN Glucose Hemoglobin A1c Plasma Lactic Acid Trevin Troponin I C-Reactive Protein Urine Protein Urine Ketones Ur Leukocyte Esterase Urine WBC Urine Mucus 01/24/25 01/24/25 01/24/25 07:58 16:09 16:54 WBC MCV MCHC RDW Plt Count Neutrophils # Lymphocytes # PT INR APTT ABG pH 7.34 L ABG pCO2 76 H* ABG pO2 78 L ABG HCO3 41 H* ABG Total CO2 43 H VBG pH 7.30 L VBG pCO2 83 H* VBG HCO3 41 H Chloride 91 L Carbon Dioxide 41 H* BUN Glucose 126 H Hemoglobin A1c Plasma Lactic Acid Trevin Troponin I C-Reactive Protein Urine Protein Urine Ketones Ur Leukocyte Esterase Urine WBC Urine Mucus 01/25/25 01/25/25 01/25/25 07:52 07:52 07:52 WBC 13.1 H MCV MCHC 29.8 L RDW 15.7 H Plt Count 147 L Neutrophils # Lymphocytes # PT INR APTT 48.4 H ABG pH ABG pCO2 ABG pO2 ABG HCO3 ABG Total CO2 VBG pH VBG pCO2 VBG HCO3 Chloride 92 L Carbon Dioxide 40 H BUN Glucose 119 H Hemoglobin A1c Plasma Lactic Acid Trevin Troponin I C-Reactive Protein Urine Protein Urine Ketones Ur Leukocyte Esterase Urine WBC Urine Mucus 01/26/25 01/26/25 06:59 06:59 WBC 13.6 H MCV MCHC 30.1 L RDW 15.7 H Plt Count Neutrophils # 11.6 H Lymphocytes # 0.8 L PT INR APTT ABG pH ABG pCO2 ABG pO2 ABG HCO3 ABG Total CO2 VBG pH VBG pCO2 VBG HCO3 Chloride 90 L Carbon Dioxide 42 H* BUN 23 H Glucose 121 H Hemoglobin A1c Plasma Lactic Acid Trevin Troponin I C-Reactive Protein Urine Protein Urine Ketones Ur Leukocyte Esterase Urine WBC Urine Mucus - Diagnostic Findings Chest x-ray: image reviewed Assessment and Plan Assessment: Acute hypoxemic respiratory failure, likely multifactorial, in part related to fluid overload/CHF, chronic bronchial asthma, sleep apnea syndrome, obesity, and Pickwickian syndrome. History of hypertension. History of obstructive sleep apnea syndrome, noncompliant with CPAP. Prior history of minimal tobacco use. History of chronic bronchial asthma. Morbid obesity. Plan: Plan dated January 26, 2025. The patient is seen and interviewed. He is examined. He is seen today in room 372. He is sitting at the side of the bed. The CPAP device is in the room. He apparently was seeing Dr. 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 He apparently was diagnosed as having sleep apnea, placed on CPAP, but apparently his CPAP device does not currently work. The patient is currently on 3 L. No IV fluids. We add albuterol and Symbicort. The albuterol to be used 2 puffs as needed. The patient will continue on oxygen. Labs, x-rays, and medications are reviewed. The patient's overall prognosis remains poor. He should follow- up with Dr. Massey after discharge. Blood gases done on January 20 show pO2 of 78, pCO2 of 76, pH of 7.34. The patient likely has right-sided heart failure, may be from his obesity and Pickwickian syndrome, or his sleep apnea syndrome. Prognosis is poor. Dictation was produced using [employer] software. Please excuse any grammatical, word or spelling errors. Time with Patient: Greater than 30
--- NOTE | 2025-01-26 20:07 | P.PN ---
Subjective Progress Note Date: 01/26/25 64-year-old male with past medical history of hypertension presents with complaints of abdominal pain and shortness of breath. Cardiology consulted for new onset CHF. States that shortness of breath was getting worse over the last 2 weeks and during this time also noticed swelling in the bilateral lower extremities. Admits to orthopnea during this time, states he is only able to sleep in a recliner. Reports he previously was on lisinopril and hydrochlorothiazide up until August of last year when he had an insurance problem and was no longer able to receive the medication. Admits to being a smo ker 1 pack a day 20 years ago. Most recent echo in 2018 showed EF 50 to 55% with left atrial dilation. Past surgical and family history unremarkable. No previous cardiac procedures. Vitals: Heart rate 94, respiratory rate 18, BP 183/83, O2 saturation 96% on 3 L Labs: Significant for WBC 14.9, hemoglobin 14, MCV 100, troponin peaked at 0.068, BNP 2780, cholesterol 180, LDL 117, and HDL 44 EKG: Sinus tachycardia CXR: Cardiomegaly plus pulmonary vascular congestion 3/ Patient seen and examined in the cardiac stepdown unit. No significant events. Yesterday, patient underwent echo which showed EF 55 to 60% with no obvious wall motion abnormalities. Overnight patient had bursts of PVT's lasting less than 30 seconds. TSH and magnesium ordered yesterday were within normal limits, A1c was 7.9. Blood pressures 122/49, heart rate 75, pulse ox 91% on 3 L. Repeat blood work reveals WBC 13.9, hemoglobin 13.4, sodium 139, potassium 4.1, chloride 93, bicarb 39, glucose 137, and TSH 1.19. Patient continues to have good urine output, documented that he is put out at least 1 L but after speaking with nursing staff they report the patient "does not aim well "and they believe his urine output is greater than what is actually recorded. 3/ Patient seen and examined in the cardiac stepdown unit. No significant overnight events. Patient had a urine output of 2 L in the last 24 hours, rhett harley continue to mention that he has trouble aiming and believe the urine output is greater than is what is actually being recorded. Heart rate 62, respiratory rate 18, blood pressure 139/77, O2 saturation 98% on 3 L. Repeat blood work reveals WBC 13.2, hemoglobin 13.3, sodium 138, bicarb 41. Patient continues to have lower extremity swelling with no marked improvement from previous days. 01/25/2025 Patient still continues to be very lethargic and short of breath. We did try to give him CPAP last night however he did not use it much. Noticed to be hypertensive today, kidney function is stable, significantly hypercapnic. 01/26/2025 Patient is very lethargic still short of breath. BP still uncontrolled with some readings at 170/84, repeat 143/63, heart rate 67 bpm. PHYSICAL EXAM Vital signs reviewed. General: non toxic, no distress, morbidly obese HEENT: Head is normocephalic. Pupils are equal, round. Sclerae anicteric. Mucous membranes of the mouth are moist. No JVD. No carotid bruit. Cardiovascular: S1S2 reg, no murmur, 1+ pitting edema bilaterally up to the knee, worse in left leg Lungs: Decreased air entry bilaterally, no rhonchi, no rales, no accessory muscle use, mild wheezing auscultated bilaterally Abdominal: soft, nontender to palpation, no guarding NEUROLOGIC EXAMINATION: Patient is awake, alert and oriented x3. ASSESSMENT -Acute HFpEF exacerbation -Type II NSTEMI due to CHF exacerbation -Acute hypoxic and hypercapnic respiratory failure Newly diagnosed type 2 diabetes, HbA1c 7.9, Dyslipidemia, LDL 92, -Hypercapnia -Undiagnosed NAHEED with pickwickian syndrome -Morbid obesity -Hypertension PLAN Increase losartan to 100 mg daily For diuretics discontinue IV diuretic. Start Bumex 1 mg p.o. twice daily, metolazone 2.5 mg daily, Farxiga 10 mg, Aldactone 25 mg Continue aspirin, Lipitor, Coreg 6.25 mL twice daily Recommend NAHEED management. Home O2 evaluation prior to discharge At this time patient is cleared from cardiovascular standpoint. Cardiology team will sign off. Please reconsult us in case of any question. Discharge disposition, social work consult Patient will need ischemic evaluation and pulmonary hypertension with a left and right heart catheterization on outpatient basis. Objective - Vital Signs Vital signs: Vital Signs Temp 98.8 F 01/26/25 19:32 Pulse 68 01/26/25 19:32 Resp 24 01/26/25 19:32 BP 143/68 01/26/25 19:32 Pulse Ox 94 L 01/26/25 19:32 FiO2 40 01/24/25 17:10 Intake & Output 01/26/25 01/26/25 01/27/25 06:59 18:59 06:59 Intake Total 1374 Output Total 900 1000 Balance -900 374 Weight 172.3 kg Intake: Oral 1374 Output: Urine 900 1000 Other: Voiding Method Toilet Toilet # Bowel Movements 1 - Labs CBC & Chem 7: 01/26/25 06:59 01/26/25 06:59 Labs: Abnormal Lab Results - Last 24 Hours (Table) 01/26/25 01/26/25 Range/Units 06:59 06:59 WBC 13.6 H (3.8-10.6) k/uL MCHC 30.1 L (31.0-37.0) g/dL RDW 15.7 H (11.5-15.5) % Neutrophils # 11.6 H (1.3-7.7) k/uL Lymphocytes # 0.8 L (1.0-4.8) k/uL Chloride 90 L (98-107) mmol/L Carbon Dioxide 42 H* (22-30) mmol/L BUN 23 H (9-20) mg/dL Glucose 121 H (74-99) mg/dL
[2025-01-26] MEDS: SYMBICORT 160-4.5 MCG INHALER INHALATION SCH (20:20)
[2025-01-26] MEDS: BUMETANIDE 1 MG TAB PO SCH (20:31)
[2025-01-26] MEDS: LOSARTAN 50 MG TAB PO STA (20:31)
[2025-01-27 07:40] LABS: Basophils # (A) 0.1 k/uL (0-0.2); Basophils % (A) 1 %; Eosinophils # (A) 0.2 k/uL (0-0.7); Eosinophils % (A) 2 %; HCT 46.4 % (39.0-53.0); HGB 14.3 gm/dL (13.0-17.5); Hypochromasia Slight; Lymphocytes # (A) 0.8 k/uL (1.0-4.8); Lymphocytes % (A) 8 %; MCH 30.1 pg (25.0-35.0); MCV 97.1 fL (80.0-100.0); Macrocytosis Slight; Mean Platelet Volume 8.9; Monocytes # (A) 0.6 k/uL (0-1.0); Monocytes % (A) 6 %; Neutrophils # (A) 8.5 k/uL (1.3-7.7); Neutrophils % (A) 82 %; Platelet Count 158 k/uL (150-450); Poikilocytosis Slight; RBC 4.77 m/uL (4.30-5.90); WBC 10.3 k/uL (3.8-10.6)
[2025-01-27 07:46] LABS: African American GFR (CKD) >90 (>60 ml/min/1.73 sqM); Anion Gap 7 mmol/L; Blood Urea Nitrogen 25 mg/dL (9-20); Calcium 9.2 mg/dL (8.4-10.2); Chloride 88 mmol/L (98-107); Glucose 120 mg/dL (74-99); Non-African American GFR(CKD) >90 (>60 ml/min/1.73 sqM); Sodium 135 mmol/L (137-145)
[2025-01-27 08:09] LABS: Carbon Dioxide 40 mmol/L (22-30); Magnesium 1.9 mg/dL (1.6-2.3); Potassium 4.2 mmol/L (3.5-5.1)
--- NOTE | 2025-01-27 08:15 | P.PN ---
Subjective Progress Note Date: 01/26/25 64-year-old male who presents to the emergency department for abdominal pain and shortness of breath. States that he has been dealing with shortness of breath for the last 2 weeks. He has also started to notice swelling in his lower extremities and abdomen. Today he felt a pain in his left upper quadrant that occurred about 2 hours prior to arrival. This has since persisted, prompting him to come here for evaluation. Denies any nausea or vomiting. Denies any changes in bowel or bladder habits. Denies any history of respiratory or cardiac problems. Patient hypoxic on arrival with an oxygen of 87%. This improved with 2 L via nasal cannula. Lab work demonstrates leukocytosis with a white blood cell count of 17.5. D- dimer negative. Lactic acid elevated at 2.3. BNP elevated at 2780 and troponin elevated at 0.057. Patient denies a history of CHF. Chest x-ray demonstrates cardiomegaly with pulmonary vascular congestion. COVID, influenza, and RSV testing negative. Urinalysis negative for signs of infection. Given his abdominal pain ER attempted to get a CT scan on the patient. However, he could not comfortably lay flat for the testing. 01/22/2025 Patient is seen in follow-up today with cardiology following. Patient is being started on IV Lasix and was given a dose of Diamox. 2D echo ordered and pending and patient denies any previous history of heart failure. Patient reports significant swelling although is also morbidly obese with significantly large body habitus. Patient currently living in a retirement house and is noncompliant with any medication and outpatient follow-up. Patient is short of breath and continues to be short of breath with conversation and minimal exertion. Patient will need outpatient evaluation by pulmonary for sleep apnea 01/23/2025 Patient is seen in follow-up today continues on IV Lasix with cardiology following. Lasix is being increased and adjustments to medications including adding Farxiga. Patient and family inquiring when patient can potentially go home. Patient is currently maintained on oxygen and will likely need oxygen on discharge as patient desats quickly into the high 70s and low 80s. Encouraged increase activity as tolerated 01/24/2025 Patient is seen in follow-up today continues on IV Lasix with cardiology following continues with significant volume overload and 1-2+ pitting edema of lower extremities. Patient is extremely lethargic today maintained on 3 L of oxygen although is found often per nursing staff to have his oxygen off and desats quickly into the 70s. Patient will most likely require oxygen on discharge as there is high concerns with obesity hypoventilation syndrome. Per nursing staff patient is mostly sleeping throughout the day and will obtain ABGs. Carbon dioxide at 41 today otherwise kidney function stable with a sodium of 138 potassium 4.0, BUN 13 and creatinine 0.83. Patient currently resides at a retirement house and unsure of discharge planning. Recommend PT/OT therapy e valuation and case management/social work consult. 01/25/2025 Is eval today sitting up in the chair. He reports improvement in his shortness of breath he seems to be more awake and alert as compared to yesterday. He was placed on a BiPAP with settings of 12/5 at 40% FiO2 yesterday secondary to ABGs revealing pH level of 7.34, pCO2 of 76 pO2 of 78 HCO3 of 41 and a total CO2 level of 43. Today's electrolytes and renal function are stable. His white blood cell count is 13.1. He continues to have significant lower extremity edema. He has been continued on IV Lasix and diuresing well as he keeps having to get up to the restroom he has not been able to wear the BiPAP much today. Cardiogram comes back revealing an EF of 55 to 60% with severe right ventricle dilation with moderate pulmonary hypertension. Mild mitral and tricuspid regurgitation and mild pulmonary hypertension. 01/26/2025 Patient is seen in follow-up today continues on IV Lasix. Patient transition to CPAP at night and tolerating and will continue nasal cannula. Patient desats quickly and will likely require oxygen on discharge. Patient continues with high-dose Lasix and diuresing and will follow-up on repeat labs. Encouraged increase activity as tolerated. Review of systems: Constitutional: reports of fatigue, no fever, or chills Cardiovascular: No reports of chest pain or palpitations Respiratory: reports of ongoing shortness of breath GI: No reports of nausea, vomiting, or diarrhea : No reports of dysuria or retention Neurovascular: reports of generalized weakness All medications have been reviewed Physical exam: Gen: This is a 64-year-old male who is more awake today, fatigues easily, well-d eveloped, morbidly obese, ill-appearing, appears older than stated age, unkempt and disheveled HEENT: Head is atraumatic, normocephalic. Pupils equal, round. Sclerae is anicteric. NECK: Supple. No JVD. No lymphadenopathy. No thyromegaly. LUNGS: Diminished breath sounds bilaterally with some faint crackles noted at the bases. No intercostal retractions. HEART: S1, S2 are muffled ABDOMEN: Soft. Morbidly obese bowel sounds are present. No masses. No tenderness. EXTREMITIES: Bilateral lower extremity edema noted 1-2+ pitting. No calf tenderness. Tether noted NEUROLOGICAL: Patient is lethargic although arousable, alert and oriented x3. Cranial nerves 2 through 12 are grossly intact. Diffusely weak Assessment: -New onset CHF; acute exacerbation, pulmonary vascular congestion noted on imaging and BNP was elevated at 2780, preserved EF of 55 to 60% -Acute hypoxic respiratory failure secondary to above, maintained on 3 L -Leukocytosis/possible UTI; lactic acid is elevated at 2.3; no signs of infection; chest x-ray is negative for any acute process -Elevated troponin; type II secondary to supply demand mismatch -Hypertension; lisinopril 20 mg daily -Morbid obesity with a BMI of 55.6; possible obesity hypoventilation syndrome, will need outpatient testing -New diabetes mellitus type 2 with hemoglobin A1C of 7.9. GI prophylaxis DVT prophylaxis; SCDs/subcu heparin CODE STATUS; full code Plan: Patient is continued on IV Lasix with cardiology following; Recommend strict intake and output monitoring Continue supportive supplemental oxygen at 3 L and does not wear oxygen out patient. Likely sleep apnea although undiagnosed concerns for obesity hypoventilation syndrome Patient has been started on CPAP with pulmonary following will continue nasal cannula and wean FiO2 as tolerated. Patient normally does not wear oxygen outpatient and will likely require oxygen on discharge Patient has been started on oral diamox daily Recommend PT/OT therapy evaluation and encouraged increase activity as tolerated Patient is sitting up in the chair mostly sleeping Case management/social work to evaluate as patient currently lives at a retirement house and unsure of discharge planning at this time. Continue to monitor electrolytes and renal function The impression and plan of care has been dictated by Nkechi Velásquez, Nurse Practitioner as directed. Dr. Janeth MD I have performed a history and examination and MDM of this patient, discussed the same with the dictator, and agree with the dictator's assessment and plan as written ,documented as a scribe. Based on total visit time, I have performed more than 50% of the visit. Objective - Vital Signs Vital signs: Vital Signs Temp 98.2 F 01/26/25 03:32 Pulse 67 01/26/25 03:32 Resp 28 H 01/26/25 03:32 BP 134/77 01/26/25 03:32 Pulse Ox 96 01/26/25 08:08 FiO2 40 01/24/25 17:10 Intake & Output 01/25/25 01/26/25 01/26/25 18:59 06:59 18:59 Intake Total 900.933 Output Total 900 Balance 900.933 -900 Weight 172.3 kg Intake: Intake, IV Titration 180.933 Amount Heparin Sod,Pork in 0.45% 180.933 NaCl 25,000 unit In 0.45 % NaCl 1 250ml.bag @ 5. 5279 UNITS/KG/HR 10 mls/ hr IV .Q24H KARIN Rx#: [id number] Oral 720 Output: Urine 900 Other: Voiding Method Toilet Toilet # Voids 6 - Labs CBC & Chem 7: 01/27/25 07:04 01/27/25 07:04 Labs: Abnormal Lab Results - Last 24 Hours (Table) 01/26/25 01/26/25 Range/Units 06:59 06:59 WBC 13.6 H (3.8-10.6) k/uL MCHC 30.1 L (31.0-37.0) g/dL RDW 15.7 H (11.5-15.5) % Neutrophils # 11.6 H (1.3-7.7) k/uL Lymphocytes # 0.8 L (1.0-4.8) k/uL Chloride 90 L (98-107) mmol/L Carbon Dioxide 42 H* (22-30) mmol/L BUN 23 H (9-20) mg/dL Glucose 121 H (74-99) mg/dL
[2025-01-27] MEDS: LOSARTAN 50 MG TAB PO SCH (09:24)
[2025-01-27] MEDS: metOLazone 2.5 MG TAB PO SCH (09:26)
--- NOTE | 2025-01-27 12:08 | P.PN ---
Subjective 64-year-old male who presents to the emergency department for abdominal pain and shortness of breath. States that he has been dealing with shortness of breath for the last 2 weeks. He has also started to notice swelling in his lower extremities and abdomen. Today he felt a pain in his left upper quadrant that occurred about 2 hours prior to arrival. This has since persisted, prompting him to come here for evaluation. Denies any nausea or vomiting. Denies any changes in bowel or bladder habits. Denies any history of respiratory or cardi ac problems. Patient hypoxic on arrival with an oxygen of 87%. This improved with 2 L via nasal cannula. Lab work demonstrates leukocytosis with a white blood cell count of 17.5. D- dimer negative. Lactic acid elevated at 2.3. BNP elevated at 2780 and troponin elevated at 0.057. Patient denies a history of CHF. Chest x-ray demonstrates cardiomegaly with pulmonary vascular congestion. COVID, influenza, and RSV testing negative. Urinalysis negative for signs of infection. Given his abdominal pain ER attempted to get a CT scan on the patient. However, he could not comfortably lay flat for the testing. 01/22/2025 Patient is seen in follow-up today with cardiology following. Patient is being started on IV Lasix and was given a dose of Diamox. 2D echo ordered and pending and patient denies any previous history of heart failure. Patient reports significant swelling although is also morbidly obese with significantly large body habitus. [facility] and is noncompliant with any medication and outpatient follow-up. Patient is short of breath and continues to be short of breath with conversation and minimal exertion. Patient will need outpatient evaluation by pulmonary for sleep apnea 01/23/2025 Patient is seen in follow-up today continues on IV Lasix with cardiology following. Lasix is being increased and adjustments to medications including adding Farxiga. Patient and family inquiring when patient can potentially go home. Patient is currently maintained on oxygen and will likely need oxygen on discharge as patient desats quickly into the high 70s and low 80s. Encouraged increase activity as tolerated 01/24/2025 Patient is seen in follow-up today continues on IV Lasix with cardiology following continues with significant volume overload and 1-2+ pitting edema of lower extremities. Patient is extremely lethargic today maintained on 3 L of oxygen although is found often per nursing staff to have his oxygen off and desats quickly into the 70s. Patient will most likely require oxygen on discharge as there is high concerns with obesity hypoventilation syndrome. Per nursing staff patient is mostly sleeping throughout the day and will obtain ABGs. Carbon dioxide at 41 today otherwise kidney function stable with a sodium of 138 potassium 4.0, BUN 13 and creatinine 0.83. Patient [facility] resides [facility] a [facility] and unsure of discharge planning. Recommend PT/OT therapy evaluation and case management/social work consult. 01/25/2025 Is eval today sitting up in the chair. He reports improvement in his shortness of breath he seems to be more awake and alert as compared to yesterday. He was placed on a BiPAP with settings of 12/5 at 40% FiO2 yesterday secondary to ABGs revealing pH level of 7.34, pCO2 of 76 pO2 of 78 HCO3 of 41 and a total CO2 level of 43. Today's electrolytes and renal function are stable. His white blood cell count is 13.1. He continues to have significant lower extremity edema. He has been continued on IV Lasix and diuresing well as he keeps having to get up to the restroom he has not been able to wear the BiPAP much today. Cardiogram comes back revealing an EF of 55 to 60% with severe right ventricle dilation with moderate pulmonary hypertension. Mild mitral and tricuspid r egurgitation and mild pulmonary hypertension. 01/26/2025 Patient is seen in follow-up today continues on IV Lasix. Patient transition to CPAP at night and tolerating and will continue nasal cannula. Patient desats quickly and will likely require oxygen on discharge. Patient continues with high-dose Lasix and diuresing and will follow-up on repeat labs. Encouraged increase activity as tolerated. 01/27 Patient did not use his CPAP last night, he was little bit more tired today and short of breath, currently his have the CPAP on, he is able to interact and get to the commode by himself Currently he is on 3 L oxygen, at home he was not on oxygen. at bedside and asking when he can go home Objective - Vital Signs Vital signs: Vital Signs Temp 97.8 F 01/27/25 09:17 Pulse 78 01/27/25 12:00 Resp 20 01/27/25 09:17 BP 124/72 01/27/25 09:17 Pulse Ox 94 L 01/27/25 09:17 FiO2 40 01/27/25 11:47 Intake & Output 01/26/25 01/27/25 01/27/25 18:59 06:59 18:59 Intake Total 1374 0 Output Total 1000 Balance 374 0 Weight 166.2 kg Intake: Oral 1374 0 Output: Urine 1000 Other: Voiding Method Toilet Toilet # Bowel Movements 1 - Exam . GENERAL: The patient is alert and oriented x3, not in any acute distress. Well developed, well nourished. Obese HEENT: Pupils are round and equally reacting to light. EOMI. No scleral icterus. No conjunctival pallor. Normocephalic, atraumatic. No pharyngeal erythema. No thyromegaly. CARDIOVASCULAR: S1 and S2 present. No murmurs, rubs, or gallops. PULMONARY: Chest is clear to auscultation, no wheezing , no crackles. ABDOMEN: Soft, nontender, nondistended, normoactive bowel sounds. No palpable organomegaly. MUSCULOSKELETAL: No joint swelling or deformity. EXTREMITIES: No cyanosis, clubbing, or pedal edema. NEUROLOGICAL: Gross neurological examination did not reveal any focal deficits. SKIN: No rashes. no petechiae. - Labs CBC & Chem 7: 01/27/25 07:04 01/27/25 07:04 Labs: Abnormal Lab Results - Last 24 Hours (Table) 01/27/25 01/27/25 Range/Units 07:04 07:04 RDW 16.0 H (11.5-15.5) % Neutrophils # 8.5 H (1.3-7.7) k/uL Lymphocytes # 0.8 L (1.0-4.8) k/uL Sodium 135 L (137-145) mmol/L Chloride 88 L (98-107) mmol/L Carbon Dioxide 40 H (22-30) mmol/L BUN 25 H (9-20) mg/dL Glucose 120 H (74-99) mg/dL Assessment and Plan Assessment: -New onset CHF; acute exacerbation, pulmonary vascular congestion noted on imaging and BNP was elevated at 2780, preserved EF of 55 to 60% -Acute hypoxic respiratory failure secondary to above, maintained on 3 L -Leukocytosis/possible UTI; lactic acid is elevated at 2.3; no signs of infection; chest x-ray is negative for any acute process -Elevated troponin; type II secondary to supply demand mismatch -Hypertension; lisinopril 20 mg daily -Morbid obesity with a BMI of 55.6; possible obesity hypoventilation syndrome, will need outpatient testing -New diabetes mellitus type 2 with hemoglobin A1C of 7.9. Plan: Patient is continued on IV Lasix with cardiology following; Recommend strict intake and output monitoring Continue supportive supplemental oxygen at 3 L and does not wear oxygen outpatient. Likely sleep apnea although undiagnosed concerns for obesity hypoventilation syndrome Patient has been started on CPAP with pulmonary following will continue nasal cannula and wean FiO2 as tolerated. Patient normally does not wear oxygen outpatient and will likely require oxygen on discharge Patient has been started on oral diamox daily Recommend PT/OT therapy evaluation and encouraged increase activity as tolerated Patient is sitting up in the chair mostly sleeping Case management/social work to evaluate as patient currently lives at a [facility] house and unsure of discharge planning at this time. Continue to monitor electrolytes and renal function GI prophylaxis DVT prophylaxis; SCDs/subcu heparin CODE STATUS; full code
[2025-01-27] MEDS: carvediloL 12.5 MG TAB PO SCH (13:27)
--- NOTE | 2025-01-27 14:06 | P.PN ---
Subjective Progress Note Date: 01/27/25 Principal diagnosis: Shortness of breath, pulmonary edema, fluid retention. Pulmonary consult dated January 26, 2025. 64-year-old male who initially presented to the emergency department, on January 21, complaining of abdominal pain. He also complained of shortness of breath. Apparently been having shortness of breath for about 2 weeks prior to admission. In addition, he complains of edema of both lower extremities, and abdomen. He also has some pain in the abdomen, prior to arrival. The patient apparently used to see Dr. Massey, the other parliamentary archivist, for chronic bronchial asthma. The patient states that he smoked for only a few years. He does have a history of documented obstructive sleep apnea syndrome, but apparently his CPAP device does not work. He is seen today in room 372. He is sitting on the edge of the bed. He is currently on 3 L of oxygen. There is a CPAP device in his room. The patient used to be on inhalers, for his chronic bronchial asthma. He did have a blood gas done on the fifth, showing a pO2 of 78, pCO2 of 76, pH is 7.34. The patient is quite obese, may have obesity/hypoventilation syndrome (Pickwickian syndrome). It should be noted that the patient is not a particularly good historian. Current laboratory data includes a white count 13.6, hemoglobin 13.8, hematocrit 45.7, and platelet count 167,000. Sodium 139, potassium 3.7, chlorides 90, CO2 42, BUN 23, and creatinine 0.93. Glucose is 121. Calcium is 9. Previous chest x-ray was consistent with fluid overload. Progress note dated January 27, 2025. 64-year-old male who looks much older than his stated age, seen again today in room 372. He is currently on BiPAP, with settings of 12/5, and 40%. When not on BiPAP, using nasal O2 at 3 L. The patient used to see Dr. Massey, the other parliamentary archivist, for his sleep apnea syndrome. The patient is morbidly obese, and I asked him to go back and see Dr. Massey once discharged. He is feeling much better. His ex- is in the room. White count 10.3, hemoglobin 14.3, hematocrit 46.4, and platelet count 158,000. Sodium 135, potassium 4.2, chloride 88, CO2 40, BUN 25, and creatinine 0.71. Glucose is 120. Calcium is 9.2. Objective - Vital Signs Vital signs: Vital Signs Temp 98.1 F 01/27/25 12:40 Pulse 65 01/27/25 12:40 Resp 18 01/27/25 12:40 BP 148/66 01/27/25 12:40 Pulse Ox 92 L 01/27/25 12:40 FiO2 40 01/27/25 11:47 Intake & Output 01/26/25 01/27/25 01/27/25 18:59 06:59 18:59 Intake Total 1374 240 Output Total 1000 700 Balance 374 -460 Weight 166.2 kg Intake: Oral 1374 240 Output: Urine 1000 700 Other: Voiding Method Toilet Toilet # Bowel Movements 1 - Exam No acute distress, oriented 3. Currently on BiPAP. HEENT examination is grossly unremarkable. Mucous membranes are moist. No oral lesions. Neck supple. Full range of motion. No adenopathy thyromegaly or neck vein distention. Cardiovascular examination reveals regular rhythm rate. S1-S2 normal. No S3 or S4. No discernible murmur noted. Heart sounds are distant. Lungs reveal scattered rhonchi. There are some basilar crackles. No wheezes. Breath sounds are equal bilaterally. Abdomen obese, with bowel sounds. No masses or tenderness. Extremities reveal lower extremity edema. No cyanosis or clubbing. Skin is without rash or lesion. Neurologic examination is brief but nonfocal. - Labs CBC & Chem 7: 01/27/25 07:04 01/27/25 07:04 Labs: Abnormal Lab Results - Last 24 Hours (Table) 01/27/25 01/27/25 Range/Units 07:04 07:04 RDW 16.0 H (11.5-15.5) % Neutrophils # 8.5 H (1.3-7.7) k/uL Lymphocytes # 0.8 L (1.0-4.8) k/uL Sodium 135 L (137-145) mmol/L Chloride 88 L (98-107) mmol/L Carbon Dioxide 40 H (22-30) mmol/L BUN 25 H (9-20) mg/dL Glucose 120 H (74-99) mg/dL Assessment and Plan Assessment: Acute hypoxemic respiratory failure, likely multifactorial, in part related to fluid overload/CHF, chronic bronchial asthma, sleep apnea syndrome, obesity, and Pickwickian syndrome. History of hypertension. History of obstructive sleep apnea syndrome, noncompliant with CPAP. Prior history of minimal tobacco use. History of chronic bronchial asthma. Morbid obesity. Plan: Plan dated January 26, 2025. The patient is seen and interviewed. He is examined. He is seen today in room 372. He is sitting at the side of the bed. The CPAP device is in the room. He apparently was seeing Dr. Massey in the past, the other parliamentary archivist. He apparently was diagnosed as having sleep apnea, placed on CPAP, but apparently his CPAP device does not currently work. The patient is currently on 3 L. No IV fluids. We add albuterol and Symbicort. The albuterol to be used 2 puffs as needed. The patient will continue on oxygen. Labs, x-rays, and medications are reviewed. The patient's overall prognosis remains poor. He should follow-up with Dr. Massey after discharge. Blood gases done on January 20 show pO2 of 78, pCO2 of 76, pH of 7.34. The patient likely has right-sided heart failure, may be from his obesity and Pickwickian syndrome, or his sleep apnea syndrome. Prognosis is poor. Dictation was produced using [employer] software. Please excuse any grammatical, word or spelling errors. Plan dated January 27, 2025. The patient is seen today in room 372. The patient used to see the other parliamentary archivist, Dr. Massey. The patient was being followed by the other parliamentary archivist, for the patient's underlying sleep apnea syndrome. He has been noncompliant with CPAP. Currently, the patient is on BiPAP, with settings of 12/5, and 40%. He is not receiving any IV fluids. When not on BiPAP, he is on nasal O2 at 3 L. Labs, x-rays, and medications are reviewed. The patient's ex- is in the room. I told her and him, that he should follow-up with Dr. Massey after discharge. We will continue to follow make recommendations. Labs, x-rays, and medications are reviewed. The patient is overall prognosis is poor. The patient needs to lose weight, as he is morbidly obese. Dictation was produced using Dragon dictation software. Please excuse any grammatical, word or spelling errors. Time with Patient: Less than 30
[2025-01-27] MEDS: carvediloL 6.25 MG TAB PO STA (14:27)
--- NOTE | 2025-01-28 12:27 | P.PN ---
Subjective 64-year-old male who presents to the emergency department for abdominal pain and shortness of breath. States that he has been dealing with shortness of breath for the last 2 weeks. He has also started to notice swelling in his lower extremities and abdomen. Today he felt a pain in his left upper quadrant that occurred about 2 hours prior to arrival. This has since persisted, prompting him to come here for evaluation. Denies any nausea or vomiting. Denies any changes in bowel or bladder habits. Denies any history of respiratory or cardi ac problems. Patient hypoxic on arrival with an oxygen of 87%. This improved with 2 L via nasal cannula. Lab work demonstrates leukocytosis with a white blood cell count of 17.5. D- dimer negative. Lactic acid elevated at 2.3. BNP elevated at 2780 and troponin elevated at 0.057. Patient denies a history of CHF. Chest x-ray demonstrates cardiomegaly with pulmonary vascular congestion. COVID, influenza, and RSV testing negative. Urinalysis negative for signs of infection. Given his abdominal pain ER attempted to get a CT scan on the patient. However, he could not comfortably lay flat for the testing. 01/22/2025 Patient is seen in follow-up today with cardiology following. Patient is being started on IV Lasix and was given a dose of Diamox. 2D echo ordered and pending and patient denies any previous history of heart failure. Patient reports significant swelling although is also morbidly obese with significantly large body habitus. Patient currently living in a [facility] and is noncompliant with any medication and outpatient follow-up. Patient is short of breath and continues to be short of breath with conversation and minimal exertion. Patient will need outpatient evaluation by pulmonary for sleep apnea 01/23/2025 Patient is seen in follow-up today continues on IV Lasix with cardiology following. Lasix is being increased and adjustments to medications including adding Farxiga. Patient and family inquiring when patient can potentially go home. Patient is currently maintained on oxygen and will likely need oxygen on discharge as patient desats quickly into the high 70s and low 80s. Encouraged increase activity as tolerated 01/24/2025 Patient is seen in follow-up today continues on IV Lasix with cardiology following continues with significant volume overload and 1-2+ pitting edema of lower extremities. Patient is extremely lethargic today maintained on 3 L of oxygen although is found often per nursing staff to have his oxygen off and desats quickly into the 70s. Patient will most likely require oxygen on discharge as there is high concerns with obesity hypoventilation syndrome. Per nursing staff patient is mostly sleeping throughout the day and will obtain ABGs. Carbon dioxide at 41 today otherwise kidney function stable with a sodium of 138 potassium 4.0, BUN 13 and creatinine 0.83. Patient currently resides at a [facility] and unsure of discharge planning. Recommend PT/OT therapy evaluation and case management/social work consult. 01/25/2025 Is eval today sitting up in the chair. He reports improvement in his shortness of breath he seems to be more awake and alert as compared to yesterday. He was placed on a BiPAP with settings of 12/5 at 40% FiO2 yesterday secondary to ABGs revealing pH level of 7.34, pCO2 of 76 pO2 of 78 HCO3 of 41 and a total CO2 level of 43. Today's electrolytes and renal function are stable. His white blood cell count is 13.1. He continues to have significant lower extremity edema. He has been continued on IV Lasix and diuresing well as he keeps having to get up to the restroom he has not been able to wear the BiPAP much today. Cardiogram comes back revealing an EF of 55 to 60% with severe right ventricle dilation with moderate pulmonary hypertension. Mild mitral and tricuspid r egurgitation and mild pulmonary hypertension. 01/26/2025 Patient is seen in follow-up today continues on IV Lasix. Patient transition to CPAP at night and tolerating and will continue nasal cannula. Patient desats quickly and will likely require oxygen on discharge. Patient continues with high-dose Lasix and diuresing and will follow-up on repeat labs. Encouraged increase activity as tolerated. 01/27 Patient did not use his CPAP last night, he was little bit more tired today and short of breath, currently his have the CPAP on, he is able to interact and get to the commode by himself Currently he is on 3 L oxygen, at home he was not on oxygen. at bedside and asking when he can go home 01/28 Patient used CPAP last night and early this morning and then he took it off and currently on 3 L oxygen via nasal cannula He still feels somewhat lethargic but better than yesterday He has weeping lower extremity, left leg there is also some oozing. He remains on Bumex 1 mg twice daily and metolazone. We added fluid restriction. Check labs in the morning Objective - Vital Signs Vital signs: Vital Signs Temp 97.3 F L 01/28/25 11:49 Pulse 63 01/28/25 11:49 Resp 16 01/28/25 11:49 BP 137/73 01/28/25 11:49 Pulse Ox 96 01/28/25 11:49 FiO2 40 01/28/25 04:23 Intake & Output 01/27/25 01/28/25 01/28/25 17:59 06:59 18:59 Intake Total 140 Output Total 100 Balance 40 Intake: IV 20 Invasive Line 1 10 Invasive Line 2 10 Oral 120 Output: Urine 100 Other: Voiding Method Toilet Bedside Commode # Voids 1 - Exam . GENERAL: The patient is alert and oriented x3, not in any acute distress. Well developed, well nourished. Obese HEENT: Pupils are round and equally reacting to light. EOMI. No scleral icterus. No conjunctival pallor. Normocephalic, atraumatic. No pharyngeal erythema. No t hyromegaly. CARDIOVASCULAR: S1 and S2 present. No murmurs, rubs, or gallops. PULMONARY: Chest is clear to auscultation, no wheezing , no crackles. ABDOMEN: Soft, nontender, nondistended, normoactive bowel sounds. No palpable organomegaly. MUSCULOSKELETAL: No joint swelling or deformity. EXTREMITIES: No cyanosis, clubbing, or pedal edema. NEUROLOGICAL: Gross neurological examination did not reveal any focal deficits. SKIN: No rashes. no petechiae. - Labs CBC & Chem 7: 01/27/25 07:04 01/27/25 07:04 Assessment and Plan Assessment: -New onset CHF; acute exacerbation, pulmonary vascular congestion noted on imaging and BNP was elevated at 2780, preserved EF of 55 to 60% -Acute hypoxic respiratory failure secondary to above, maintained on 3 L -Leukocytosis/possible UTI; lactic acid is elevated at 2.3; no signs of infection; chest x-ray is negative for any acute process -Elevated troponin; type II secondary to supply demand mismatch -Hypertension; lisinopril 20 mg daily -Morbid obesity with a BMI of 55.6; possible obesity hypoventilation syndrome, will need outpatient testing -New diabetes mellitus type 2 with hemoglobin A1C of 7.9. Plan: Patient is continued on IV Lasix with cardiology following; Recommend strict intake and output monitoring Continue supportive supplemental oxygen at 3 L and does not wear oxygen outpatient. Likely sleep apnea although undiagnosed concerns for obesity hypoventilation syndrome Patient has been started on CPAP with pulmonary following will continue nasal cannula and wean FiO2 as tolerated. Patient normally does not wear oxygen outpatient and will likely require oxygen on discharge Patient has been started on oral diamox daily Recommend PT/OT therapy evaluation and encouraged increase activity as tolerated Patient is sitting up in the chair mostly sleeping Case management/social work to evaluate as patient currently lives [facility] a [facility] and unsure of discharge planning at this time. Continue to monitor electrolytes and renal function GI prophylaxis DVT prophylaxis; SCDs/subcu heparin CODE STATUS; full code
--- NOTE | 2025-01-28 13:37 | P.PN ---
Subjective Progress Note Date: 01/28/25 Principal diagnosis: Shortness of breath, pulmonary edema, fluid retention. Pulmonary consult dated January 26, 2025. 64-year-old male who initially presented to the emergency department, on January 21, complaining of abdominal pain. He also complained of shortness of breath. Apparently been having shortness of breath for about 2 weeks prior to admission. In addition, he complains of edema of both lower extremities, and abdomen. He also has some pain in the abdomen, prior to arrival. The patient apparently used to see Dr. Massey, the other [employer], for chronic bronchial asthma. The patient states that he smoked for only a few years. He does have a history of documented obstructive sleep apnea syndrome, but apparently his CPAP device does not work. He is seen today in room 372. He is sitting on the edge of the bed. He is currently on 3 L of oxygen. There is a CPAP device in his room. The patient used to be on inhalers, for his chronic bronchial asthma. He did have a blood gas done on the fifth, showing a pO2 of 78, pCO2 of 76, pH is 7.34. The patient is quite obese, may have obesity/hypoventilation syndrome (Pickwickian syndrome). It should be noted that the patient is not a particularly good historian. Current laboratory data includes a white count 13.6, hemoglobin 13.8, hematocrit 45.7, and platelet count 167,000. Sodium 139, potassium 3.7, chlorides 90, CO2 42, BUN 23, and creatinine 0.93. Glucose is 121. Calcium is 9. Previous chest x-ray was consistent with fluid overload. Progress note dated January 27, 2025. 64-year-old male who looks much older than his stated age, seen again today in room 372. He is currently on BiPAP, with settings of 12/5, and 40%. When not on BiPAP, using nasal O2 at 3 L. The patient used to see Dr. Massey, the other [employer], for his sleep apnea syndrome. The patient is morbidly obese, and I asked him to go back and see Dr. Massey once discharged. He is feeling much better. His ex- is in the room. White count 10.3, hemoglobin 14.3, hematocrit 46.4, and platelet count 158,000. Sodium 135, potassium 4.2, chloride 88, CO2 40, BUN 25, and creatinine 0.71. Glucose is 120. Calcium is 9.2. Progress note dated January 28, 2025. 64-year-old male seen today in room 372. The patient has a history of sleep apnea syndrome, and may also suffer from Pickwickian syndrome. The patient sees Dr. Massey, from the other pulmonary group. He is currently on 3 L nasal O2. He is also getting saline at 10 cc an hour. In addition, he uses BiPAP, intermittently, with settings of 12/5, and 40%. According to the patient's ex- , the patient has not been real good about his health care. No new labs today. Objective - Vital Signs Vital signs: Vital Signs Temp 97.3 F L 01/28/25 11:49 Pulse 63 01/28/25 12:50 Resp 16 01/28/25 11:49 BP 137/73 01/28/25 11:49 Pulse Ox 96 01/28/25 11:49 FiO2 40 01/28/25 04:23 Intake & Output 01/27/25 01/28/25 01/28/25 17:59 06:59 18:59 Intake Total 140 Output Total 100 Balance 40 Intake: IV 20 Invasive Line 1 10 Invasive Line 2 10 Oral 120 Output: Urine 100 Other: Voiding Method Toilet Bedside Commode # Voids 1 - Exam No acute distress, oriented 3. Currently on 3 liters nasal cannula. No respiratory distress. The patient is sitting in the chair, next to the hospital bed. HEENT examination is grossly unremarkable. Mucous membranes are moist. No oral lesions. Neck supple. Full range of motion. No adenopathy thyromegaly or neck vein distention. Cardiovascular examination reveals regular rhythm rate. S1-S2 normal. No S3 or S4. No discernible murmur noted. Heart sounds are distant. Lungs reveal scattered rhonchi. There are some basilar crackles. No wheezes. Breath sounds are equal bilaterally. Abdomen obese, with bowel sounds. No masses or tenderness. Extremities reveal lower extremity edema. No cyanosis or clubbing. Skin is without rash or lesion. Neurologic examination is brief but nonfocal. - Labs CBC & Chem 7: 01/27/25 07:04 01/27/25 07:04 Assessment and Plan Assessment: Acute hypoxemic respiratory failure, likely multifactorial, in part related to fluid overload/CHF, chronic bronchial asthma, sleep apnea syndrome, obesity, and Pickwickian syndrome. History of hypertension. History of obstructive sleep apnea syndrome, noncompliant with CPAP. Prior history of minimal tobacco use. History of chronic bronchial asthma. Morbid obesity. Plan: Plan dated January 26, 2025. The patient is seen and interviewed. He is examined. He is seen today in room 372. He is sitting at the side of the bed. The CPAP device is in the room. He apparently was seeing Dr. Massey in the past, the other [employer]. He apparently was diagnosed as having sleep apnea, placed on CPAP, but apparently his CPAP device does not currently work. The patient is currently on 3 L. No IV fluids. We add albuterol and Symbicort. The albuterol to be used 2 puffs as needed. The patient will continue on oxygen. Labs, x-rays, and medications are reviewed. The patient's overall prognosis remains poor. He should follow-up with Dr. Massey after discharge. Blood gases done on January 20 show pO2 of 78, pCO2 of 76, pH of 7.34. The patient likely has right-sided heart failure, may be from his obesity and Pickwickian syndrome, or his sleep apnea syndrome. Prognosis is poor. Dictation was produced using [employer] software. Please excuse any grammatical, word or spelling errors. Plan dated January 27, 2025. The patient is seen today in room 372. The patient used to see the other [employer], Dr. Massey. The patient was being followed by the other [employer], for the patient's underlying sleep apnea syndrome. He has been noncompliant with CPAP. Currently, the patient is on BiPAP, with settings of 12/5, and 40%. He is not receiving any IV fluids. When not on BiPAP, he is on nasal O2 at 3 L. Labs, x-rays, and medications are reviewed. The patient's ex- is in the room. I told her and him, that he should follow-up with Dr. Massey after discharge. We will continue to follow make recommendations. Labs, x-rays, and medications are reviewed. The patient is overall prognosis is poor. The patient needs to lose weight, as he is morbidly obese. Dictation was produced using Dragon dictation software. Please excuse any grammatical, word or spelling errors. Plan dated January 28, 2025. The patient is seen today in room 372. The patient alternates between 3 L nasal cannula, and BiPAP. Currently he is receiving saline at 10 cc an hour. The patient follows with the other [employer], Dr. Massey. The patient has not been good about using his CPAP, as prescribed. Labs, x-rays, and medications are reviewed. We will continue to follow. Prognosis is guarded. No additional recommendations at this time. No new labs. Dictation was produced using [employer] software. Please excuse any grammatical, word or spelling errors. Time with Patient: Less than 30
--- NOTE | 2025-01-28 19:37 | P.PN ---
Subjective Progress Note Date: 01/27/25 64-year-old male with past medical history of hypertension presents with complaints of abdominal pain and shortness of breath. Cardiology consulted for new onset CHF. States that shortness of breath was getting worse over the last 2 weeks and during this time also noticed swelling in the bilateral lower extremities. Admits to orthopnea during this time, states he is only able to sleep in a recliner. Reports he previously was on lisinopril and hydrochlorothiazide up until August of last year when he had an insurance problem and was no longer able to receive the medication. Admits to being a smo ker 1 pack a day 20 years ago. Most recent echo in 2018 showed EF 50 to 55% with left atrial dilation. Past surgical and family history unremarkable. No previous cardiac procedures. Vitals: Heart rate 94, respiratory rate 18, BP 183/83, O2 saturation 96% on 3 L Labs: Significant for WBC 14.9, hemoglobin 14, MCV 100, troponin peaked at 0.068, BNP 2780, cholesterol 180, LDL 117, and HDL 44 EKG: Sinus tachycardia CXR: Cardiomegaly plus pulmonary vascular congestion 3/ Patient seen and examined in the cardiac stepdown unit. No significant events. Yesterday, patient underwent echo which showed EF 55 to 60% with no obvious wall motion abnormalities. Overnight patient had bursts of PVT's lasting less than 30 seconds. TSH and magnesium ordered yesterday were within normal limits, A1c was 7.9. Blood pressures 122/49, heart rate 75, pulse ox 91% on 3 L. Repeat blood work reveals WBC 13.9, hemoglobin 13.4, sodium 139, potassium 4.1, chloride 93, bicarb 39, glucose 137, and TSH 1.19. Patient continues to have good urine output, documented that he is put out at least 1 L but after speaking with nursing staff they report the patient "does not aim well "and they believe his urine output is greater than what is actually recorded. 3/ Patient seen and examined in the cardiac stepdown unit. No significant overnight events. Patient had a urine output of 2 L in the last 24 hours, rhett harley continue to mention that he has trouble aiming and believe the urine output is greater than is what is actually being recorded. Heart rate 62, respiratory rate 18, blood pressure 139/77, O2 saturation 98% on 3 L. Repeat blood work reveals WBC 13.2, hemoglobin 13.3, sodium 138, bicarb 41. Patient continues to have lower extremity swelling with no marked improvement from previous days. 01/25/2025 Patient still continues to be very lethargic and short of breath. We did try to give him CPAP last night however he did not use it much. Noticed to be hypertensive today, kidney function is stable, significantly hypercapnic. 01/26/2025 Patient is very lethargic still short of breath. BP still uncontrolled with some readings at 170/84, repeat 143/63, heart rate 67 bpm. 01/27/2025 Patient is very lethargic and still short of breath. Denies any chest pain chest pressure, still appears volume overloaded. Kidney function is stayed stable, PHYSICAL EXAM Vital signs reviewed. General: non toxic, no distress, morbidly obese HEENT: Head is normocephalic. Pupils are equal, round. Sclerae anicteric. Mucous membranes of the mouth are moist. No JVD. No carotid bruit. Cardiovascular: S1S2 reg, no murmur, 1+ pitting edema bilaterally up to the knee, worse in left leg Lungs: Decreased air entry bilaterally, no rhonchi, no rales, no accessory muscle use, mild wheezing auscultated bilaterally Abdominal: soft, nontender to palpation, no guarding NEUROLOGIC EXAMINATION: Patient is awake, alert and oriented x3. ASSESSMENT -Acute HFpEF exacerbation -Type II NSTEMI due to CHF exacerbation -Acute hypoxic and hypercapnic respiratory failure Newly diagnosed type 2 diabetes, HbA1c 7.9, Dyslipidemia, LDL 92, -Hypercapnia -Undiagnosed NAHEED with pickwickian syndrome -Morbid obesity -Hypertension PLAN Continue losartan to 100 mg daily Continue start Bumex 1 mg p.o. twice daily, metolazone 2.5 mg daily, Farxiga 10 mg, Aldactone 25 mg Continue aspirin, Lipitor, Coreg 6.25 mL twice daily Recommend NAHEED management. Home O2 evaluation prior to discharge At this time patient is cleared from cardiovascular standpoint. Cardiology team will sign off. Please reconsult us in case of any question. Discharge disposition, social work consult Patient will need ischemic evaluation and pulmonary hypertension with a left and right heart catheterization on outpatient basis. Objective - Vital Signs Vital signs: Vital Signs Temp 97.7 F 01/28/25 17:00 Pulse 64 01/28/25 17:00 Resp 22 01/28/25 17:00 BP 111/64 01/28/25 17:00 Pulse Ox 92 L 01/28/25 17:00 FiO2 40 01/28/25 04:23 Intake & Output 01/28/25 01/28/25 01/29/25 06:59 18:59 06:59 Intake Total 920 Output Total 300 Balance 620 Intake: IV 20 Invasive Line 1 10 Invasive Line 2 10 Oral 900 Output: Urine 300 Other: Voiding Method Toilet Bedside Commode # Voids 1 # Bowel Movements 1 - Labs CBC & Chem 7: 01/27/25 07:04 01/27/25 07:04
[2025-01-29 08:18] LABS: African American GFR (CKD) 62 (>60 ml/min/1.73 sqM); Blood Urea Nitrogen 39 mg/dL (9-20); Calcium 9.3 mg/dL (8.4-10.2); Chloride 84 mmol/L (98-107); Glucose 108 mg/dL (74-99); Non-African American GFR(CKD) 54 (>60 ml/min/1.73 sqM); Potassium 3.2 mmol/L (3.5-5.1); Sodium 137 mmol/L (137-145)
[2025-01-29 08:25] LABS: Basophils # (A) 0.1 k/uL (0-0.2); Basophils % (A) 1 %; Eosinophils # (A) 0.2 k/uL (0-0.7); Eosinophils % (A) 2 %; HCT 46.6 % (39.0-53.0); HGB 14.5 gm/dL (13.0-17.5); Hypochromasia Moderate; Lymphocytes # (A) 0.9 k/uL (1.0-4.8); Lymphocytes % (A) 9 %; MCH 30.3 pg (25.0-35.0); MCHC 31.2 g/dL (31.0-37.0); MCV 97.3 fL (80.0-100.0); Mean Platelet Volume 9.1; Monocytes # (A) 0.7 k/uL (0-1.0); Monocytes % (A) 8 %; Neutrophils # (A) 7.3 k/uL (1.3-7.7); Neutrophils % (A) 79 %; Platelet Count 161 k/uL (150-450); RBC 4.79 m/uL (4.30-5.90); RDW 15.5 % (11.5-15.5); WBC 9.2 k/uL (3.8-10.6)
[2025-01-29 08:33] LABS: Anion Gap 9 mmol/L
[2025-01-29 08:34] LABS: Carbon Dioxide 44 mmol/L (22-30)
[2025-01-29 08:38] VITALS: TEMP 98.3
[2025-01-29] MEDS ORDERED: Potassium Replacement Protocol 1 EACH MISC MISCELLANE PRN (09:47)
[2025-01-29] MEDS: POTASSIUM CHLORIDE ER 20 MEQ TAB.ER PO SCH (10:01)
[2025-01-29 11:06] VITALS: BP 131/70; RESP 18
[2025-01-29 12:39] VITALS: PULSE 70
--- NOTE | 2025-01-29 14:21 | P.PN ---
Subjective Progress Note Date: 01/29/25 64-year-old male with past medical history of hypertension presents with complaints of abdominal pain and shortness of breath. Cardiology consulted for new onset CHF. States that shortness of breath was getting worse over the last 2 weeks and during this time also noticed swelling in the bilateral lower extremities. Admits to orthopnea during this time, states he is only able to sleep in a recliner. Reports he previously was on lisinopril and hydrochlorothiazide up until August of last year when he had an insurance problem and was no longer able to receive the medication. Admits to being a smo ker 1 pack a day 20 years ago. Most recent echo in 2018 showed EF 50 to 55% with left atrial dilation. Past surgical and family history unremarkable. No previous cardiac procedures. Vitals: Heart rate 94, respiratory rate 18, BP 183/83, O2 saturation 96% on 3 L Labs: Significant for WBC 14.9, hemoglobin 14, MCV 100, troponin peaked at 0.068, BNP 2780, cholesterol 180, LDL 117, and HDL 44 EKG: Sinus tachycardia CXR: Cardiomegaly plus pulmonary vascular congestion 3/ Patient seen and examined in the cardiac stepdown unit. No significant events. Yesterday, patient underwent echo which showed EF 55 to 60% with no obvious wall motion abnormalities. Overnight patient had bursts of PVT's lasting less than 30 seconds. TSH and magnesium ordered yesterday were within normal limits, A1c was 7.9. Blood pressures 122/49, heart rate 75, pulse ox 91% on 3 L. Repeat blood work reveals WBC 13.9, hemoglobin 13.4, sodium 139, potassium 4.1, chloride 93, bicarb 39, glucose 137, and TSH 1.19. Patient continues to have good urine output, documented that he is put out at least 1 L but after speaking with nursing staff they report the patient "does not aim well "and they believe his urine output is greater than what is actually recorded. 3/ Patient seen and examined in the cardiac stepdown unit. No significant overnight events. Patient had a urine output of 2 L in the last 24 hours, rhett harley continue to mention that he has trouble aiming and believe the urine output is greater than is what is actually being recorded. Heart rate 62, respiratory rate 18, blood pressure 139/77, O2 saturation 98% on 3 L. Repeat blood work reveals WBC 13.2, hemoglobin 13.3, sodium 138, bicarb 41. Patient continues to have lower extremity swelling with no marked improvement from previous days. 01/25/2025 Patient still continues to be very lethargic and short of breath. We did try to give him CPAP last night however he did not use it much. Noticed to be hypertensive today, kidney function is stable, significantly hypercapnic. 01/26/2025 Patient is very lethargic still short of breath. BP still uncontrolled with some readings at 170/84, repeat 143/63, heart rate 67 bpm. 01/27/2025 Patient is very lethargic and still short of breath. Denies any chest pain chest pressure, still appears volume overloaded. Kidney function is stayed stable, 01/29 Patient seen and examined. Patient continues to have lower extremity edema and bilateral wheezing. Blood pressure 131/70, heart rate 60, pulse ox 97% on 2 L nasal cannula. Pulse ox drops to 88% off oxygen. Repeat blood work reveals WBC 9.2, hemoglobin 14.5. CO2 is 44, BUN 39 creatinine 1.39. Potassium 3.2. Potassium has been replaced. PHYSICAL EXAM Vital signs reviewed. General: non toxic, no distress, morbidly obese HEENT: Head is normocephalic. Pupils are equal, round. Sclerae anicteric. Mucous membranes of the mouth are moist. No JVD. No carotid bruit. Cardiovascular: S1S2 reg, no murmur, 1+ pitting edema bilaterally up to the knee, worse in left leg Lungs: Decreased air entry bilaterally, no rhonchi, no rales, no accessory muscle use, mild wheezing auscultated bilaterally Abdominal: soft, nontender to palpation, no guarding NEUROLOGIC EXAMINATION: Patient is awake, alert and oriented x3. ASSESSMENT -Acute HFpEF exacerbation -Type II NSTEMI due to CHF exacerbation -Acute hypoxic and hypercapnic respiratory failure Newly diagnosed type 2 diabetes, HbA1c 7.9, Dyslipidemia, LDL 92, -Hypercapnia -Undiagnosed NAHEED with pickwickian syndrome -Morbid obesity -Hypertension PLAN Continue current cardiac medications Recommend NAHEED management. At this time patient is cleared from cardiovascular standpoint. Discharge disposition, social work consult Patient will need ischemic evaluation and pulmonary hypertension with a left and right heart catheterization on outpatient basis. Nurse practitioner note has been reviewed, I agree with documented findings and plan of care. Patient was seen and examined. Objective - Vital Signs Vital signs: Vital Signs Temp 98.3 F 01/29/25 08:34 Pulse 54 L 01/29/25 08:34 Resp 15 01/29/25 08:34 BP 110/59 01/29/25 08:34 Pulse Ox 96 01/29/25 08:34 FiO2 32 01/29/25 04:15 Intake & Output 01/28/25 01/29/25 01/29/25 18:59 06:59 18:59 Intake Total 920 120 Output Total 300 Balance 620 120 Weight 166 kg Intake: IV 20 Invasive Line 1 10 Invasive Line 2 10 Oral 900 120 Output: Urine 300 Other: Voiding Method Toilet Toilet Toilet Bedside Commode Bedside Commode Bedside Commode # Voids 1 1 # Bowel Movements 1 1 - Labs CBC & Chem 7: 01/29/25 06:55 01/29/25 06:55 Labs: Abnormal Lab Results - Last 24 Hours (Table) 01/29/25 01/29/25 Range/Units 06:55 06:55 Lymphocytes # 0.9 L (1.0-4.8) k/uL Potassium 3.2 L (3.5-5.1) mmol/L Chloride 84 L (98-107) mmol/L Carbon Dioxide 44 H* (22-30) mmol/L BUN 39 H (9-20) mg/dL Creatinine 1.39 H (0.66-1.25) mg/dL Glucose 108 H (74-99) mg/dL
--- NOTE | 2025-01-29 15:58 | P.PN ---
Subjective Progress Note Date: 01/29/25 On today's evaluation of 01/29/2025, the patient is being seen for a follow-up. Patient is morbidly obese with a body mass index of 51 and he has chronic hypoxic/hypercapnic respiratory failure. He also has features of obese hypoventilation syndrome/obstructive sleep apnea. The patient is currently on 2 L of oxygen by nasal cannula. The patient has been diuresed adequately and the patient is feeling better. Sitting up in a chair. Denies having any specific complaints. Remains on a combination of Bumex and Aldactone. On today's blood work, the creatinine is up to 1.39 with a BUN of 39. Serum bicarb is at 44. Sodium levels at 137 and a potassium level is at 3.2. White cell count of 9.2 with a hemoglobin of 14.5 and a platelet count of 161. The patient denies having any specific complaints. On 2 L of oxygen, his pulse ox is 96%. His echocardiogram that was done on 01/22/2025 shows a preserved LV function with an ejection fraction of 55%. No significant valvular abnormalities. LV wall was quite thickened. His chest x-ray that was done on 01/21/2005 at the time of admission showed evidence of cardiomegaly and pulmonary vascular congestion. Overall, the patient is feeling improved. Objective - Vital Signs Vital signs: Vital Signs Temp 98.3 F 01/29/25 08:34 Pulse 70 01/29/25 12:38 Resp 18 01/29/25 11:04 BP 131/70 01/29/25 11:04 Pulse Ox 88 L 01/29/25 11:32 FiO2 32 01/29/25 04:15 Intake & Output 01/28/25 01/29/25 01/29/25 18:59 06:59 18:59 Intake Total 920 120 Output Total 300 800 Balance 620 -680 Weight 166 kg Intake: IV 20 Invasive Line 1 10 Invasive Line 2 10 Oral 900 120 Output: Urine 300 800 Other: Voiding Method Toilet Toilet Toilet Bedside Commode Bedside Commode Bedside Commode # Voids 1 1 # Bowel Movements 1 1 - Exam No acute distress, oriented 3. Currently on 2 liters nasal cannula. No respiratory distress. HEENT examination is grossly unremarkable. Mucous membranes are moist. No oral lesions. Neck supple. Full range of motion. No adenopathy thyromegaly or neck vein distention. Cardiovascular examination reveals regular rhythm rate. S1-S2 normal. No S3 or S4. No discernible murmur noted. Heart sounds are distant. Lungs reveal scattered rhonchi. There are some basilar crackles. No wheezes. Breath sounds are equal bilaterally. Abdomen obese, with bowel sounds. No masses or tenderness. Extremities reveal lower extremity edema. No cyanosis or clubbing. Lower extremity edema is gradually improving. Skin is without rash or lesion. Neurologic examination is brief but nonfocal. - Labs CBC & Chem 7: 01/29/25 06:55 01/29/25 06:55 Labs: Abnormal Lab Results - Last 24 Hours (Table) 01/29/25 01/29/25 Range/Units 06:55 06:55 Lymphocytes # 0.9 L (1.0-4.8) k/uL Potassium 3.2 L (3.5-5.1) mmol/L Chloride 84 L (98-107) mmol/L Carbon Dioxide 44 H* (22-30) mmol/L BUN 39 H (9-20) mg/dL Creatinine 1.39 H (0.66-1.25) mg/dL Glucose 108 H (74-99) mg/dL Assessment and Plan Plan: Acute on chronic hypoxic/hypercapnic respiratory failure. The patient presented to us with a component of CHF/diastolic dysfunction and edema, improved and the patient is currently on 2 L of O2 nasal cannula. The blood gases from 01/24/2025 showed acute on chronic hypercapnic respiratory failure along with chronic hypoxemia Morbid obesity with a BMI of 51.0 Clinically suspected obstructive sleep apnea with a component of obese hypoventilation syndrome and chronic hypercapnic respiratory failure Bronchial asthma Hypertension Chronic metabolic alkalosis Preserved LV function with an ejection fraction of 55 to 60% Acute kidney injury and the creatinine is up to 1.39 and the patient remains on a combination of Bumex and Aldactone Chronic lower extremity edema Plan Patient is currently comfortable on 2 L of oxygen by nasal cannula Continue oral Bumex and Aldactone Obtain a follow-up blood work and check renal function based on the observed acute kidney injury Continues to have lower extremity edema Overall condition is improved. The BiPAP is at the bedside. This is set at a pressure of 14 over 5 cm of water. Advised to use the BiPAP specially overnight. Outpatient sleep study Will benefit from a BiPAP machine on the long-term. IV fluids are KVO Rest of the medication was reviewed. No other changes will continue to follow. Thank you Time with Patient: Greater than 30
[2025-01-29] MEDS ORDERED: POTASSIUM CHLORIDE ER 20 MEQ TAB.ER PO SCH (21:00)
== END 2025-01-29 15:35 | disposition home or self-care (01) | DRG 280 ==
LOC: EC 12:48 → 3SCARD 15:32
PROVIDERS: ADMIT Internal Medicine; ATTEND Internal Medicine
PROC: 5A09357 Assistance with Respiratory Ventilation, Less than 24 Consecutive Hours, Continuous Positive Airway Pressure (ICD-10-PCS; principal; 2025-01-27)
DX: I11.0 Hypertensive heart disease with heart failure (principal); I50.33 Acute on chronic diastolic (congestive) heart failure; I21.A1 Myocardial infarction type 2; J96.21 Acute and chronic respiratory failure with hypoxia; J96.22 Acute and chronic respiratory failure with hypercapnia; E66.2 Morbid (severe) obesity with alveolar hypoventilation; E87.20 Acidosis, unspecified; E11.65 Type 2 diabetes mellitus with hyperglycemia; D72.829 Elevated white blood cell count, unspecified; I27.20 Pulmonary hypertension, unspecified; J45.909 Unspecified asthma, uncomplicated; Z68.43 Body mass index [BMI] 50.0-59.9, adult; N39.0 Urinary tract infection, site not specified; E78.5 Hyperlipidemia, unspecified; Z91.199 Patient's noncompliance with other medical treatment and regimen due to unspecified reason; Z91.148 Patient's other noncompliance with medication regimen for other reason; Z87.891 Personal history of nicotine dependence; Z79.899 Other long term (current) drug therapy; Z71.3 Dietary counseling and surveillance
CPT/HCPCS: 36415; 36600; 71046; 80048; 80053; 80061; 81001; 82150; 82607; 82803; 82805; 83036; 83605; 83690; 83735; 83880; 84145; 84443; 84484; 85025; 85027; 85379; 85610; 85730; 86140; 87636; 93306; 94640; 94660; 94760; 96374; 96375; 99285

== ENCOUNTER → 2025-02-12 | Outpatient (CLI) | payer OTHER ==
[2025-02-12 15:42] LABS: ALT 29 U/L (10-49); AST 31 U/L (14-35); Albumin 4.1 g/dL (3.8-4.9); Albumin/Globulin Ratio 1.41 Ratio (1.60-3.17); Alkaline Phosphatase 86 U/L (41-126); Blood Urea Nitrogen 13.2 mg/dL (9.0-27.0); Calcium 9.6 mg/dL (8.7-10.3); Carbon Dioxide 28.9 mmol/L (21.6-31.8); Chloride 99 mmol/L (96-109); Globulin 2.9 g/dL (1.6-3.3); Glucose 153 mg/dL (70-110); Potassium 4.8 mmol/L (3.5-5.5); Sodium 141 mmol/L (135-145); Total Bilirubin 0.9 mg/dL (0.3-1.2)
[2025-02-12 16:29] LABS: HCT 48.4 % (39.6-50.0); HGB 15.8 g/dL (13.0-17.0); MCH 30.5 pg (27.0-32.0); MCHC 32.6 g/dL (32.0-37.0); MCV 93.4 FL (80.0-97.0); Mean Platelet Volume 11.6 FL (9.5-12.2); NRBC Per 100 WBC 0 X 10*3/uL (0.00-0.01); Platelet Count 288 X 10*3/uL (140-440); RBC 5.18 X 10*6/uL (4.40-5.60); RDW 14.6 % (11.5-14.5); WBC 13.65 X 10*3/uL (4.50-10.00)
[2025-02-12 17:09] LABS: NT-Pro-B-Type Natriuretic Pept 201 pg/mL (0-125)
== END | disposition home or self-care (01) ==
LOC: LABWHC1 09:02
PROVIDERS: ATTEND Student in an Organized Health Care Education/Training Program
DX: Z13.6 Encounter for screening for cardiovascular disorders (principal); I50.9 Heart failure, unspecified; D72.9 Disorder of white blood cells, unspecified; E11.9 Type 2 diabetes mellitus without complications; E78.5 Hyperlipidemia, unspecified; E03.9 Hypothyroidism, unspecified; R79.89 Other specified abnormal findings of blood chemistry
CPT/HCPCS: 36415; 80053; 83036; 83880; 85027